=== PATIENT | female | born 1970 | race Native Hawaiian/Other Pacific Islander ===

== ENCOUNTER 2016-09-03 07:56 | Emergency (ER) | payer OTHER ==
[2016-09-03 07:57] VITALS: BMI 24.6
[2016-09-03 08:02] VITALS: RESP 16; O2SAT 99
--- NOTE | 2016-09-03 08:11 | ED PDOC ---
Arrival/HPI - General Chief Complaint: ENT Problem Time Seen by Provider: 09/03/16 08:10 Historian: Patient - History of Present Illness Narrative History of Present Illness (Text): 09/03/16 08:10 A 45 year old female, whose past medical history includes hypertension, presents to the emergency department complaining of upper lip swelling since this morning. Patient reports symptom began after wearing a duckbill mask at work. Patient denies use of any new medications, creams or foods. Patient denies any fever, chills, nausea, vomiting, diarrhea, abdominal pain, chest pain , shortness of breath or any other complaints. PMD: None Time/Duration: Other (This morning) Symptom Course: Unchanged Quality: Other Context: Work Past Medical History - Provider Review Nursing Documentation Reviewed: Yes - Infectious Disease Hx of Infectious Diseases: None - Reproductive Menopause: No - Cardiac Hx Hypertension: Yes - Endocrine/Metabolic Hx Hyperthyroidism: Yes - Psychiatric Hx Depression: No Hx Emotional Abuse: No Hx Physical Abuse: No Hx Substance Use: No - Past Surgical History Past Surgical History: No Previous - Anesthesia Hx Anesthesia: No Hx Anesthesia Reactions: No Hx Malignant Hyperthermia: No - Suicidal Assessment Feels Threatened In Home Enviroment: No Family/Social History - Physician Review Nursing Documentation Reviewed: Yes Family/Social History: No Known Family HX Smoking Status: Unknown If Ever Smoked Hx Alcohol Use: No Hx Substance Use: No Hx Substance Use Treatment: No Allergies/Home Meds Allergies/Adverse Reactions: Allergies cherries Allergy (Uncoded 09/03/16 08:02) RASH Home Medications: Home Meds Medication Instructions Recorded Confirmed Irbesartan [Avapro] 0 mg PO DAILY 09/03/16 09/03/16 Review of Systems - Physician Review All systems were reviewed & negative as marked: Yes - Review of Systems Constitutional: absent: Fevers, Night Sweats Respiratory: absent: SOB Cardiovascular: absent: Chest Pain Gastrointestinal: absent: Abdominal Pain, Diarrhea, Nausea, Vomiting Skin: Other (Upper lip swelling) Physical Exam - Physical Exam Narrative Physical Exam (Text): Constitutional: No acute distress. Head: Normocephalic. Atraumatic. Upper lip swelling. Eyes: PERRL. ENT: Moist mucous membranes. No uvular swelling. No tongue swelling. Neck: Supple. Cardiovascular: Regular rate. Chest: No tenderness. Respiratory: Clear to auscultation bilaterally. Airway patent. GI: Soft. Nontender. Nondistended. Back: No CVA tenderness. Musculoskeletal: No tenderness or swelling of extremities. Skin: No rash. Neurologic: Alert, no focal deficit. Vital Signs Reviewed: Yes Vital Signs Temp Pulse Resp BP Pulse Ox 09/03/16 07:57 98.8 F 92 H 16 125/80 99 Temperature: Afebrile Blood Pressure: Normal Pulse: Tachycardic Respiratory Rate: Normal Appearance: Positive for: Well-Appearing, Non-Toxic, Comfortable Pain Distress: None Mental Status: Positive for: Alert and Oriented X 3 Medical Decision Making ED Course and Treatment: 09/03/16 08:10 Impression: A 45 year old female with upper lip swelling. Plan: -- Decadron, Benadryl, Pepcid -- Reassess and disposition Progress Notes: 09/03/16 08:45 On re-evaluation, patient developed left upper eyelid swelling. Patient continues to deny swelling in throat. Will place patient on IV and administer IV medication. 09/03/16 10:29 Eyelid swelling improved. Upper lip remains swollen, not increasing in size, patient not in any distress and no concern for airway. Will discharge, continue medications, f/u PMD, instructed to return to the ER for any worsening swelling , tongue swelling, throat closing, dyspnea. - Medication Orders Current Medication Orders: Discontinued Medications Dexamethasone (Decadron) 10 mg PO STAT STA Stop: 09/03/16 08:15 Last Admin: 09/03/16 08:46 Dose: Dexamethasone (Decadron Inj) Confirm Administered Dose 12 mg .ROUTE .STK-MED ONE Stop: 09/03/16 08:35 Last Admin: 09/03/16 08:43 Dose: 10 mg Diphenhydramine HCl (Benadryl) 25 mg PO STAT STA Stop: 09/03/16 08:15 Diphenhydramine HCl (Benadryl) 25 mg PO STAT STA Stop: 09/03/16 08:28 Last Admin: 09/03/16 08:46 Dose: Diphenhydramine HCl (Benadryl) Confirm Administered Dose 50 mg .ROUTE .STK-MED ONE Stop: 09/03/16 08:35 Last Admin: 09/03/16 08:44 Dose: 25 mg Famotidine (Pepcid) 20 mg PO STAT STA Stop: 09/03/16 08:15 Last Admin: 09/03/16 08:46 Dose: Famotidine (Pepcid) Confirm Administered Dose 20 mg .ROUTE .STK-MED ONE Stop: 09/03/16 08:35 Last Admin: 09/03/16 08:44 Dose: 20 mg - Scribe Statement The provider has reviewed the documentation as recorded by the Ayushibfrederic Hyde Provider Scribe Attestation: All medical record entries made by the Scribe were at my direction and personally dictated by me. I have reviewed the chart and agree that the record accurately reflects my personal performance of the history, physical exam, medical decision making, and the department course for this patient. I have also personally directed, reviewed, and agree with the discharge instructions and disposition. Disposition/Present on Arrival - Present on Arrival Any Indicators Present on Arrival: No History of DVT/PE: No History of Uncontrolled Diabetes: No Urinary Catheter: No History of Decub. Ulcer: No History Surgical Site Infection Following: None - Disposition Have Diagnosis and Disposition been Completed?: Yes Diagnosis: Lip swelling Disposition: HOME/ ROUTINE Disposition Time: 10:30 Patient Plan: Discharge Condition: STABLE Discharge Instructions (ExitCare): General Allergic Reaction (ED) Prescriptions: Dexamethasone [Decadron] 5 tab PO ONCE #5 tab DiphenhydrAMINE [Benadryl] 2 cap PO Q8 #25 cap Famotidine [Pepcid] 1 tab PO BID #14 tab Referrals: PCP,NO [Primary Care Provider] - Follow up with primary Forms: WORK NOTE
[2016-09-03] MEDS ORDERED: DiphenhydrAMINE 50 mg/ml Inj ONE (08:34)
[2016-09-03] MEDS ORDERED: Dexamethasone 4 mg/1 ml ONE (08:34)
[2016-09-03 10:44] VITALS: BP 131/78; PULSE 83; TEMP 97.9
== END 2016-09-03 10:48 | disposition home or self-care (01) ==
LOC: ED 07:56
DX: R22.0 Localized swelling, mass and lump, head (principal)
CPT/HCPCS: 99283; J1100; J1200

== ENCOUNTER 2016-11-16 16:28 | Emergency (ER) | payer OTHER ==
[2016-11-16 16:44] VITALS: BMI 23.6
[2016-11-16] MEDS ORDERED: Alum-Mag Hydrox-Simethicone Susp (30 mL) PO STA (17:04)
--- NOTE | 2016-11-16 17:04 | ED PDOC ---
Arrival/HPI - General Historian: Patient - History of Present Illness Time/Duration: Other (yesterday) Symptom Onset: Sudden Symptom Course: Intermittent Quality: Pressure <Sawyer Aguilar - Last Filed: 11/16/16 19:05> <LucilaChad L - Last Filed: 11/17/16 11:55> - General Chief Complaint: Chest Pain Time Seen by Provider: 11/16/16 16:31 - History of Present Illness Narrative History of Present Illness (Text): 11/16/16 17:00 This is a 45 year old female with PMHx HTN, hypercholesterolemia, gastritis left ovarian cyst who presents complaining of chest and epigastric pain. Patient states that pain began yesterday and feels like a pressure sensation. It is intermittent and begins in the epigastric region and radiates to the chest. The patient states that that there was diaphoresis, nausea, palpitations , lightheadedness, and dyspnea at one point yesterday. This has since resolved. Patient states that neither the epigastric nor the chest pain are related to meals. Patient denies family history of IL/CAD but admits to family history of diabetes. PMD:Dr. Tapia (Sawyer Aguilar) Past Medical History - Provider Review Nursing Documentation Reviewed: Yes - Infectious Disease Hx of Infectious Diseases: None - Reproductive Menopause: No - Cardiac Hx Cardiac Disorders: Yes Hx Hypertension: Yes - Pulmonary Hx Respiratory Disorders: No - Neurological Hx Neurological Disorder: No - HEENT Hx HEENT Disorder: No - Renal Hx Renal Disorder: No - Endocrine/Metabolic Hx Endocrine Disorders: Yes Hx Hyperthyroidism: Yes - Hematological/Oncological Hx Blood Disorders: No - Integumentary Hx Dermatological Disorder: No - Musculoskeletal/Rheumatological Hx Musculoskeletal Disorders: No - Gastrointestinal Hx Gastrointestinal Disorders: No - Genitourinary/Gynecological Hx Genitourinary Disorders: No - Psychiatric Hx Psychophysiologic Disorder: No Hx Substance Use: No - Past Surgical History Past Surgical History: No Previous - Anesthesia Hx Anesthesia: No Hx Anesthesia Reactions: No Hx Malignant Hyperthermia: No - Suicidal Assessment Feels Threatened In Home Enviroment: No <Sawyer Aguilar - Last Filed: 11/16/16 19:05> Family/Social History - Physician Review Nursing Documentation Reviewed: Yes Family/Social History: Diabetes Smoking Status: Unknown If Ever Smoked Hx Alcohol Use: No Hx Substance Use: No Hx Substance Use Treatment: No <Sawyer Aguilar - Last Filed: 11/16/16 19:05> Allergies/Home Meds <Sawyer Aguilar - Last Filed: 11/16/16 19:05> <Chad Gaytan - Last Filed: 11/17/16 11:55> Allergies/Adverse Reactions: Allergies cherries Allergy (Uncoded 09/03/16 08:02) RASH Home Medications: Home Meds Medication Instructions Recorded Confirmed Irbesartan [Avapro] 0 mg PO DAILY 09/03/16 11/16/16 Simvastatin [Zocor] 20 mg PO DAILY 11/16/16 11/16/16 Review of Systems - Review of Systems Constitutional: Normal Eyes: Normal ENT: Normal Respiratory: SOB (resolved) Cardiovascular: Chest Pain, Palpitations (resolved) Gastrointestinal: Abdominal Pain (epigastric), Nausea (resolved) Genitourinary Female: Normal Musculoskeletal: Normal Skin: Normal Neurological: Other (lightheadedness resolved) Endocrine: Normal Hemo/Lymphatic: Normal Psychiatric: Normal <Sawyer Aguilar - Last Filed: 11/16/16 19:05> Physical Exam Vital Signs Reviewed: Yes Temperature: Afebrile Blood Pressure: Normal Pulse: Regular Respiratory Rate: Normal Appearance: Positive for: Well-Appearing Pain Distress: Mild Mental Status: Positive for: Alert and Oriented X 3 - Systems Exam Head: Present: Atraumatic, Normocephalic Pupils: Present: PERRL Extroacular Muscles: Present: EOMI Conjunctiva: Present: Normal Mouth: Present: Moist Mucous Membranes Neck: Present: Normal Range of Motion Respiratory/Chest: Present: Clear to Auscultation, Good Air Exchange. No: Accessory Muscle Use Cardiovascular: Present: Regular Rate and Rhythm, Normal S1, S2, Other (chest pain not reproducible) Abdomen: Present: Tenderness (epigastric tenderness), Normal Bowel Sounds. No: Distention Upper Extremity: Present: Normal Inspection, NORMAL PULSES. No: Edema Lower Extremity: Present: Normal Inspection, NORMAL PULSES. No: Edema, CALF TENDERNESS Neurological: Present: GCS=15, CN II-XII Intact Skin: Present: Warm, Dry, Normal Color. No: Rashes Psychiatric: Present: Alert, Oriented x 3 <Sawyer Aguilar - Last Filed: 11/16/16 19:05> Vital Signs Temp Pulse Resp BP Pulse Ox 11/16/16 23:00 76 16 127/85 99 11/16/16 19:04 98.2 F 83 16 129/73 98 11/16/16 17:14 98.1 F 97 H 17 133/71 99 Medical Decision Making - Lab Interpretations I have reviewed the lab results: Yes - EKG Interpretation Interpreted by ED Physician: Yes Type: 12 lead EKG - Transfer of Care Patient signed out to Dr:: Dr. Sesay Pending Radiology Studies:: Abdominal Ultrasound <Sawyer Aguilar - Last Filed: 11/16/16 19:05> <Chad Gaytan - Last Filed: 11/17/16 11:55> ED Course and Treatment: 11/16/16 17:37 Impression: This is a 45 year old female with PMHx HTN, gastritis who presents complaining of chest and epigastric pain. Since the epigastric pain radiates to the chest, it is likely that the pain is related to the GI system. The cardiac enzymes were unremarkable and the EKG was also not concerning showing NSR at rate [address] changes. Plan: EKG, Cardiac ISO CBC, CMP, Lipase, Mag Lipid panel Maalox and IV Pepcid were given. Patient was still in pain upon re-assessment. Morphine 4 mg IV given. Troponin negative. Portable CXR: IMPRESSION:No focal consolidation, significant pleural effusion, or definite pneumothorax identified. Elevated lipase at 389. Mildly elevated LFTs. Abdominal Ultrasound ordered. (Sawyer Aguilar) 11/16/16 19:00 45 yo female presents with epigastric and left upper abdominal pain. I agree with resident note. I agree with history and physical, assessment and plan. Patient's LFTs are mildly elevated. Lipase at 389. Case signed out to Dr. Sesay to f/u ultrasound, reevaluate and disposition. (Chad Gaytan) - Lab Interpretations Lab Results: 11/16/16 16:39 11/16/16 16:39 Lab Results 11/16/16 17:30: Urine Color Yellow, Urine Appearance Clear, Urine pH 6.0, Ur Specific Rowley 1.025, Urine Protein Negative, Urine Glucose (UA) Negative, Urine Ketones Negative, Urine Blood Negative, Urine Nitrate Negative, Urine Bilirubin Negative, Urine Urobilinogen 0.2, Ur Leukocyte Esterase Small H, Urine RBC 2 - 5, Urine WBC 5 - 10, Ur Epithelial Cells 3 - 4, Urine Bacteria Many 11/16/16 16:39: Sodium 140, Potassium 3.9, Chloride 103, Carbon Dioxide 26, Anion Gap 15, BUN 21, Creatinine 0.6, Est GFR ( Amer) > 60, Est GFR (Non- Af Amer) > 60, Random Glucose 98, Calcium 9.1, Magnesium 2.0, Total Bilirubin 0.6, AST 45 H, ALT 78 H, Alkaline Phosphatase 86, Lactate Dehydrogenase 458, Total Creatine Kinase 37, Troponin I < 0.01, Total Protein 7.8, Albumin 4.5, Globulin 3.3, Albumin/Globulin Ratio 1.4, Triglycerides 166 H, Cholesterol 200, LDL Cholesterol Direct 115, HDL Cholesterol 60, Lipase 389 H 11/16/16 16:39: WBC 8.8, RBC 4.27, Hgb 13.9, Hct 39.5, MCV 92.5, MCH 32.6, MCHC 35.2, RDW 12.7, Plt Count 394, MPV 8.3, Gran % 52.8, Lymph % (Auto) 39.0 H, Gilliam % (Auto) 6.6 H, Eos % (Auto) 1.0 L, Baso % (Auto) 0.6, Gran # 4.66, Lymph # 3.4, Gilliam # 0.6, Eos # 0.1, Baso # 0.05 - RAD Interpretation Radiology Orders: 11/16/16 16:59 CHEST PORTABLE [RAD] Stat 11/16/16 17:40 ABDOMEN COMPLETE [US] Stat 11/16/16 19:20 ABD PELVIS PO & IV CONTRAST [CT] Stat - Medication Orders Current Medication Orders: Discontinued Medications Al Hydrox/Mg Hydrox/Simethicone (Maalox Plus 30 Ml) 30 ml PO STAT STA Stop: 11/16/16 17:05 Last Admin: 11/16/16 17:29 Dose: 30 ml Dexamethasone (Decadron Inj) 10 mg IVP STAT STA Stop: 11/16/16 22:05 Last Admin: 11/16/16 22:18 Dose: 10 mg IVP Administration Document 11/16/16 22:18 SC (Rec: 11/16/16 22:18 [facility] [id number]) Charges for Administration # of IVP Administrations 1 Diphenhydramine HCl (Benadryl) 25 mg IVP STAT STA Stop: 11/16/16 22:05 Last Admin: 11/16/16 22:10 Dose: 25 mg IVP Administration Document 11/16/16 22:10 GMD (Rec: 11/16/16 22:10 GMD [id number]) Charges for Administration # of IVP Administrations 1 Diphenhydramine HCl (Benadryl) Confirm Administered Dose 50 mg .ROUTE .STK-MED ONE Stop: 11/16/16 22:08 Last Admin: 11/16/16 22:12 Dose: Famotidine (Pepcid) 20 mg IVP STAT STA Stop: 11/16/16 17:05 Last Admin: 11/16/16 17:29 Dose: 20 mg IVP Administration Document 11/16/16 17:29 IT (Rec: 11/16/16 17:30 IT [id number]) Charges for Administration # of IVP Administrations 1 Sodium Chloride (Sodium Chloride 0.9%) 1,000 mls @ 999 mls/hr IV .Q1H1M STA Stop: 11/16/16 20:19 Last Admin: 11/16/16 20:03 Dose: 999 mls/hr eMAR Start Stop Document 11/16/16 20:03 SC (Rec: 11/16/16 20:03 [id number] Intravenous Solution Start Date 11/16/16 Start Time 20:03 End Date 11/16/16 End time 21:03 Total Infusion Time 60 Iohexol (Omnipaque 240 (50 Ml)) Confirm Administered Dose 50 ml .ROUTE .STK-MED ONE Stop: 11/16/16 20:21 Iohexol (Omnipaque 350 100 Ml) Confirm Administered Dose 350 mg .ROUTE .STK-MED ONE Stop: 11/16/16 21:26 Ketorolac Tromethamine (Toradol) 30 mg IVP STAT STA Stop: 11/16/16 19:45 Last Admin: 11/16/16 20:03 Dose: 30 mg MAR Pain Assessment Document 11/16/16 20:03 SC (Rec: 11/16/16 20:03 [id number] Pain Reassessment Is this a pain reassessment? Yes Sleep Is patient sleeping during reassessment? No Presence of Pain Presence of Pain Yes Pain Scale Used Pain Scale Used Numeric Location Left, Right or Bilateral Left Upper or Lower Lower Pain Location Body Site Chest Description Description Constant Intensity of Pain at present 7 IVP Administration Document 11/16/16 20:03 [place] (Rec: 11/16/16 20:03 [id number] Charges for Administration # of IVP Administrations 1 Re-Assess: MAR Pain Assessment Document 11/16/16 21:03 MT (Rec: 11/17/16 00:02 [id number] Pain Reassessment Is this a pain reassessment? Yes Sleep Is patient sleeping during reassessment? Yes Morphine Sulfate (Morphine) 4 mg IVP STAT STA Stop: 11/16/16 18:20 Last Admin: 11/16/16 19:06 Dose: Not Given Non-Admin Reason: Patient Refused Pantoprazole Sodium (Protonix Inj) 40 mg IVP ONCE STA Stop: 11/16/16 19:20 Last Admin: 11/16/16 20:02 Dose: 40 mg IVP Administration Document 11/16/16 20:02 MT (Rec: 11/16/16 20:02 [id number] Charges for Administration # of IVP Administrations 1 Disposition/Present on Arrival - Present on Arrival Any Indicators Present on Arrival: No History of DVT/PE: No History of Uncontrolled Diabetes: No Urinary Catheter: No History of Decub. Ulcer: No History Surgical Site Infection Following: None - Disposition Have Diagnosis and Disposition been Completed?: Yes Disposition Time: 19:00 <Sawyer Aguilar - Last Filed: 11/16/16 19:05> - Disposition Patient Plan: Discharge <Chad Gaytan - Last Filed: 11/17/16 11:55> - Disposition Diagnosis: Abdominal pain, Hiatal hernia, Urinary tract infection, Fatty infiltration of liver, Gallstones Disposition: HOME/ ROUTINE Condition: GOOD Discharge Instructions (ExitCare): Hiatal Hernia (ED), Gallstones (ED), Non- Alcoholic Fatty Liver Disease (ED) Additional Instructions: Avoid fatty and greasy food. Drink plenty of fluids. Take the nexium as prescribed. Make sure you follow up with gastroenterology. Return to the emergency department if any new concerning symptoms. Prescriptions: Esomeprazole Magnesium [Nexium] 1 cap PO DAILY #30 cap Nitrofurantoin Macrocrystals [Macrobid] 100 mg PO BID #14 cap Referrals: Sinan Tapia MD [Medical Doctor] - Follow up with primary Forms: [employer] ([place])
[2016-11-16 17:17] LABS: BASO # 0.05 K/mm3 (0.0-2.0); BASO % 0.6 % (0.0-3.0); EOS # 0.1 (0.0-0.7); GRAN # 4.66 (1.4-6.5); GRAN % 52.8 % (50.0-68.0); HEMATOCRIT 39.5 % (36.0-48.0); LYMPH # 3.4 (1.2-3.4); MEAN CELL VOLUME 92.5 fl (80.0-105.0); MEAN CORPUSCULAR HEMOGLOBIN 32.6 pg (25.0-35.0); MEAN CORPUSCULAR HGB CONC 35.2 g/dl (31.0-37.0); MEAN PLATELET VOLUME 8.3 fl (7.0-11.0); MONO # 0.6 (0.1-0.6); MONO % 6.6 % (1.0-6.0); RED CELL DISTRIBUTION WIDTH 12.7 % (11.5-14.5); WHITE BLOOD COUNT 8.8 10^3/ul (4.5-11.0)
[2016-11-16 17:29] LABS: ALB/GLOB RATIO 1.4 (1.1-1.8); ALKALINE PHOSPHATASE 86 U/L (38-126); ALT/SGPT 78 U/L (7-56); AST/SGOT 45 U/L (14-36); BILIRUBIN,TOTAL 0.6 mg/dL (0.2-1.3); BLOOD UREA NITROGEN 21 mg/dL (7-21); CALCIUM 9.1 mg/dL (8.4-10.5); CARBON DIOXIDE 26 mmol/L (21-33); CHLORIDE 103 mmol/L (98-107); GFR AFRICAN-AMERICAN > 60; GLUCOSE,RANDOM 98 mg/dL (70-110); LIPASE 389 U/L (23-300); POTASSIUM 3.9 mmol/L (3.6-5.0); SODIUM 140 mmol/L (132-148); TOTAL PROTEIN 7.8 g/dL (5.8-8.3)
[2016-11-16 17:41] LABS: TROPONIN I < 0.01 ng/mL
[2016-11-16 17:54] LABS: URINE BILIRUBIN NEGATIVE (NEGATIVE); URINE BLOOD NEGATIVE (NEGATIVE); URINE GLUCOSE (UA) NEGATIVE (NEGATIVE); URINE KETONE NEGATIVE (NEGATIVE); URINE LEUKOCYTE ESTERASE SMALL Leu/uL (NEGATIVE); URINE PROTEIN NEGATIVE mg/dL (<30 mg/dL); URINE UROBILINOGEN 0.2 E.U./dL (<1 E.U./dL)
[2016-11-16 17:58] LABS: URINE APPEARANCE CLEAR (CLEAR); URINE COLOR YELLOW (YELLOW)
[2016-11-16 18:18] LABS: CHOLESTEROL 200 mg/dL (130-200)
[2016-11-16] MEDS ORDERED: Morphine 4 mg/ml ISec IVP STA (18:19)
--- NOTE | 2016-11-16 18:36 | RAD ---
HISTORY: chest pain COMPARISON: Chest x-ray performed 07/17/13 TECHNIQUE: Chest, one view. FINDINGS: LUNGS: No focal consolidation. Please note that chest x-ray has limited sensitivity for the detection of pulmonary masses. PLEURA: No significant pleural effusion identified. No definite pneumothorax . CARDIOVASCULAR: Heart size appears within normal limits. OSSEOUS STRUCTURES: No acute osseous abnormality identified. VISUALIZED UPPER ABDOMEN: Unremarkable. OTHER FINDINGS: None. IMPRESSION: No focal consolidation, significant pleural effusion, or definite pneumothorax identified.
[2016-11-16 18:47] LABS: URINE BACTERIA MANY (NEG)
--- NOTE | 2016-11-16 18:59 | US ---
HISTORY: r/o cholecystitis vs biliary colic. elevated lipas COMPARISON: None. TECHNIQUE: Grayscale imaging was performed. FINDINGS: LIVER: Measures 12.5 cm. There is diffuse increased echogenicity of the liver parenchyma. No mass. No intrahepatic bile duct dilatation. GALLBLADDER: The shadowing calcification within the gallbladder. COMMON BILE DUCT: Measures 1.6 mm. No stones. No dilatation. PANCREAS: Unremarkable as visualized. No mass. No ductal dilatation. RIGHT KIDNEY: Measures 10.5cm. Normal echogenicity. No calculus, mass, or hydronephrosis. LEFT KIDNEY: Measures 10.9cm. Normal echogenicity. No calculus, mass, or hydronephrosis. SPLEEN: Normal in size and contour. No mass. AORTA: No aneurysmal dilatation. IVC: Unremarkable. OTHER FINDINGS: None. IMPRESSION: Cholelithiasis. No biliary dilatation. Mild diffuse increased echogenicity in the liver may reflect hepatic steatosis however parenchymal infectious/ inflammatory etiologies cannot be entirely excluded. Clinical and laboratory correlation is advised.
[2016-11-16 19:05] VITALS: RESP 16; TEMP 98.2
[2016-11-16] MEDS ORDERED: Sodium Chloride 0.9% 1,000 ML IV STA (19:19)
--- NOTE | 2016-11-16 19:27 | ED PDOC ---
Physical Exam - Physical Exam Narrative Physical Exam (Text): 11/16/16 19:21 Patient endorsed to me by Dr. Gaytan, pending sono results. Sono is showing cholelithiasis but no biliary ductal dilatation. Of note, LFTs are midlly elevated and lipase is 389. Patient is still in pain. She did not take the morphine previously ordered. Vital Signs Temp Pulse Resp BP Pulse Ox 11/16/16 19:04 98.2 F 83 16 129/73 98 11/16/16 17:14 98.1 F 97 H 17 133/71 99 Temperature: Afebrile Blood Pressure: Normal Pulse: Regular Respiratory Rate: Normal Appearance: Positive for: Well-Appearing, Non-Toxic, Comfortable Pain Distress: None Mental Status: Positive for: Alert and Oriented X 3 - Systems Exam Head: Present: Atraumatic, Normocephalic Mouth: Present: Moist Mucous Membranes Neck: Present: Normal Range of Motion Respiratory/Chest: No: Respiratory Distress, Accessory Muscle Use Abdomen: Present: Tenderness (ttp in the epigastric and LUQ pain), Normal Bowel Sounds. No: Distention, Peritoneal Signs Back: Present: Normal Inspection Medical Decision Making ED Course and Treatment: 11/16/16 19:30 Sono results: IMPRESSION: Cholelithiasis. No biliary dilatation. Mild diffuse increased echogenicity in the liver may reflect hepatic steatosis however parenchymal infectious/ inflammatory etiologies cannot be entirely excluded. Clinical and laboratory correlation is advised. Will order CT a/p and administer toradol at this time as well as IVF. 11/16/16 23:35 CT Abdomen and Pelvis With Intravenous Contrast: Creator : CANDELARIA BLISS FINDINGS: Lower thorax: The bilateral lung bases are clear. An air-filled hiatal hernia is present. Mural thickening within the stomach, possibly related to under distention. ABDOMEN: Liver: No acute findings. Diffuse fatty infiltration is present. Gallbladder and bile ducts: The gallbladder is only minimally distended, without calcified stones. No significant intra- or extrahepatic biliary ductal dilation. Pancreas: Enhances homogeneously. No ductal dilation. No discrete mass. Spleen: No acute findings. Adrenals: No acute findings. Kidneys and ureters: No acute findings. No hydronephrosis or renal calculi. No discrete solid mass. PELVIS: Bladder: No acute findings. Reproductive: No acute findings. Appendix: The air filled appendix is of normal caliber (series 2, image 122) . ABDOMEN and PELVIS: Stomach and bowel: Oral contrast extends to the level of the colon, without obstruction. No mucosal thickening. Peritoneum: No significant fluid collection. No free air. Lymph nodes: No pathologically enlarged lymph nodes. Vasculature: Unremarkable. Bones: No acute fracture. IMPRESSION: Air-filled hiatal hernia. Mural thickening within the stomach, possibly related to underdistention. Fatty infiltration of the liver. 11/16/16 23:40 CT result as noted with no acute findings; hiatal hernia present - will d/c on PPI and abx for UTI, and she will f/u GI, to be arranged by pmd. - Lab Interpretations Lab Results: 11/16/16 16:39 11/16/16 16:39 Lab Results 11/16/16 17:30: Urine Color Yellow, Urine Appearance Clear, Urine pH 6.0, Ur Specific [place] 1.025, Urine Protein Negative, Urine Glucose (UA) Negative, Urine Ketones Negative, Urine Blood Negative, Urine Nitrate Negative, Urine Bilirubin Negative, Urine Urobilinogen 0.2, Ur Leukocyte Esterase Small H, Urine RBC 2 - 5, Urine WBC 5 - 10, Ur Epithelial Cells 3 - 4, Urine Bacteria Many 11/16/16 16:39: Sodium 140, Potassium 3.9, Chloride 103, Carbon Dioxide 26, Anion Gap 15, BUN 21, Creatinine 0.6, Est GFR ( Amer) > 60, Est GFR (Non- Af Amer) > 60, Random Glucose 98, Calcium 9.1, Magnesium 2.0, Total Bilirubin 0.6, AST 45 H, ALT 78 H, Alkaline Phosphatase 86, Lactate Dehydrogenase 458, Total Creatine Kinase 37, Troponin I < 0.01, Total Protein 7.8, Albumin 4.5, Globulin 3.3, Albumin/Globulin Ratio 1.4, Triglycerides 166 H, Cholesterol 200, LDL Cholesterol Direct 115, HDL Cholesterol 60, Lipase 389 H 11/16/16 16:39: WBC 8.8, RBC 4.27, Hgb 13.9, Hct 39.5, MCV 92.5, MCH 32.6, MCHC 35.2, RDW 12.7, Plt Count 394, MPV 8.3, Gran % 52.8, Lymph % (Auto) 39.0 H, Moody % (Auto) 6.6 H, Eos % (Auto) 1.0 L, Baso % (Auto) 0.6, Gran # 4.66, Lymph # 3.4, Moody # 0.6, Eos # 0.1, Baso # 0.05 - RAD Interpretation Radiology Orders: 11/16/16 16:59 CHEST PORTABLE [RAD] Stat 11/16/16 17:40 ABDOMEN COMPLETE [US] Stat 11/16/16 19:20 ABD PELVIS PO & IV CONTRAST [CT] Stat - Medication Orders Current Medication Orders: Discontinued Medications Al Hydrox/Mg Hydrox/Simethicone (Maalox Plus 30 Ml) 30 ml PO STAT STA Stop: 11/16/16 17:05 Last Admin: 11/16/16 17:29 Dose: 30 ml Dexamethasone (Decadron Inj) 10 mg IVP STAT STA Stop: 11/16/16 22:05 Last Admin: 11/16/16 22:18 Dose: 10 mg IVP Administration Document 11/16/16 22:18 SC (Rec: 11/16/16 22:18 [place] [facility] [id number] Charges for Administration # of IVP Administrations 1 Diphenhydramine HCl (Benadryl) 25 mg IVP STAT STA Stop: 11/16/16 22:05 Last Admin: 11/16/16 22:10 Dose: 25 mg IVP Administration Document 11/16/16 22:10 GMD (Rec: 11/16/16 22:10 GMD [id number]) Charges for Administration # of IVP Administrations 1 Diphenhydramine HCl (Benadryl) Confirm Administered Dose 50 mg .ROUTE .STK-MED ONE Stop: 11/16/16 22:08 Last Admin: 11/16/16 22:12 Dose: Famotidine (Pepcid) 20 mg IVP STAT STA Stop: 11/16/16 17:05 Last Admin: 11/16/16 17:29 Dose: 20 mg IVP Administration Document 11/16/16 17:29 IT (Rec: 11/16/16 17:30 IT [id number]) Charges for Administration # of IVP Administrations 1 Sodium Chloride (Sodium Chloride 0.9%) 1,000 mls @ 999 mls/hr IV .Q1H1M STA Stop: 11/16/16 20:19 Last Admin: 11/16/16 20:03 Dose: 999 mls/hr eMAR Start Stop Document 11/16/16 20:03 SC (Rec: 11/16/16 20:03 [id number] Intravenous Solution Start Date 11/16/16 Start Time 20:03 End Date 11/16/16 End time 21:03 Total Infusion Time 60 Iohexol (Omnipaque 240 (50 Ml)) Confirm Administered Dose 50 ml .ROUTE .STK-MED ONE Stop: 11/16/16 20:21 Iohexol (Omnipaque 350 100 Ml) Confirm Administered Dose 350 mg .ROUTE .STK-MED ONE Stop: 11/16/16 21:26 Ketorolac Tromethamine (Toradol) 30 mg IVP STAT STA Stop: 11/16/16 19:45 Last Admin: 11/16/16 20:03 Dose: 30 mg MAR Pain Assessment Document 11/16/16 20:03 SC (Rec: 11/16/16 20:03 [id number][facility] Pain Reassessment Is this a pain reassessment? Yes Sleep Is patient sleeping during reassessment? No Presence of Pain Presence of Pain Yes Pain Scale Used Pain Scale Used Numeric Location Left, Right or Bilateral Left Upper or Lower Lower Pain Location Body Site Chest Description Description Constant Intensity of Pain at present 7 IVP Administration Document 11/16/16 20:03 SC (Rec: 11/16/16 20:03 [id number] Charges for Administration # of IVP Administrations 1 Morphine Sulfate (Morphine) 4 mg IVP STAT STA Stop: 11/16/16 18:20 Last Admin: 11/16/16 19:06 Dose: Not Given Non-Admin Reason: Patient Refused Pantoprazole Sodium (Protonix Inj) 40 mg IVP ONCE STA Stop: 11/16/16 19:20 Last Admin: 11/16/16 20:02 Dose: 40 mg IVP Administration Document 11/16/16 20:02 SC (Rec: 11/16/16 20:02 [id number][facility] Charges for Administration # of IVP Administrations 1 - PA / [employer] WORKER / Resident Statement / has reviewed & agrees with the documentation as recorded. / has examined the patient and agrees with the treatment plan. Disposition/Present on Arrival - Present on Arrival Any Indicators Present on Arrival: No History of DVT/PE: No History of Uncontrolled Diabetes: No Urinary Catheter: No History of Decub. Ulcer: No History Surgical Site Infection Following: None - Disposition Have Diagnosis and Disposition been Completed?: Yes Diagnosis: Abdominal pain, Hiatal hernia, Urinary tract infection, Fatty infiltration of liver, Gallstones Disposition: HOME/ ROUTINE Disposition Time: 11:40 Patient Plan: Discharge Patient Problems: Current Active Problems Problem Status Onset Abdominal pain Acute Fatty infiltration of liver Acute Gallstones Acute Hiatal hernia Acute Urinary tract infection Acute Condition: GOOD Discharge Instructions (ExitCare): Non-Alcoholic Fatty Liver Disease (ED), Hiatal Hernia (ED), Gallstones (ED) Additional Instructions: Avoid fatty and greasy food. Drink plenty of fluids. Take the nexium as prescribed. Make sure you follow up with gastroenterology. Return to the emergency department if any new concerning symptoms. Prescriptions: Esomeprazole Magnesium [Nexium] 1 cap PO DAILY #30 cap Nitrofurantoin Macrocrystals [Macrobid] 100 mg PO BID #14 cap Referrals: Sinan Tapia MD [Medical Doctor] - Follow up with primary Forms: [employer] (Albanian)
[2016-11-16] MEDS ORDERED: Iohexol 240 (50 ml) ONE (20:20)
[2016-11-16] MEDS ORDERED: Iohexol 350 MG/100 ML VIAL ONE (21:25)
[2016-11-16] MEDS ORDERED: DiphenhydrAMINE 50 mg/ml Inj IVP STA (22:04)
[2016-11-16] MEDS ORDERED: DiphenhydrAMINE 50 mg/ml Inj ONE (22:07)
--- NOTE | 2016-11-16 23:31 | CT ---
EXAM: CT Abdomen and Pelvis With Intravenous Contrast CLINICAL HISTORY: 45 years old, female; Pain; Abdominal pain; Localized; Left upper quadrant (luq); Additional info: Epigastric pain, luq pain, abnormal lipase and lfts TECHNIQUE: Axial computed tomography images of the abdomen and pelvis with intravenous contrast. All CT scans at this facility use one or more dose reduction techniques, viz.: automated exposure control; ma/kV adjustment per patient size (including targeted exams where dose is matched to indication; i.e. head); or iterative reconstruction technique. Coronal and sagittal reformatted images were created and reviewed. CONTRAST: 93 mL of OMNI 350 administered intravenously. COMPARISON: US - ABDOMEN COMPLETE 11/16/2016 6:33:04 PM FINDINGS: Lower thorax: The bilateral lung bases are clear. An air-filled hiatal hernia is present. Mural thickening within the stomach, possibly related to under distention. ABDOMEN: Liver: No acute findings. Diffuse fatty infiltration is present. Gallbladder and bile ducts: The gallbladder is only minimally distended, without calcified stones. No significant intra- or extrahepatic biliary ductal dilation. Pancreas: Enhances homogeneously. No ductal dilation. No discrete mass. Spleen: No acute findings. Adrenals: No acute findings. Kidneys and ureters: No acute findings. No hydronephrosis or renal calculi. No discrete solid mass. PELVIS: Bladder: No acute findings. Reproductive: No acute findings. Appendix: The air filled appendix is of normal caliber (series 2, image 122) . ABDOMEN and PELVIS: Stomach and bowel: Oral contrast extends to the level of the colon, without obstruction. No mucosal thickening. Peritoneum: No significant fluid collection. No free air. Lymph nodes: No pathologically enlarged lymph nodes. Vasculature: Unremarkable. Bones: No acute fracture. IMPRESSION: Air-filled hiatal hernia. Mural thickening within the stomach, possibly related to underdistention. Fatty infiltration of the liver.
[2016-11-17 00:04] VITALS: BP 127/85; PULSE 76; O2SAT 99
--- NOTE | 2016-11-18 01:43 | CARD ---
APPROVED REPORT EKG Measurement Heart [id number] <Conclusion> Normal sinus rhythm Normal ECG
== END 2016-11-17 | disposition home or self-care (01) ==
LOC: ED 16:28
DX: K44.9 Diaphragmatic hernia without obstruction or gangrene (principal); K80.80 Other cholelithiasis without obstruction; K76.0 Fatty (change of) liver, not elsewhere classified; N39.0 Urinary tract infection, site not specified; R10.9 Unspecified abdominal pain; I10 Essential (primary) hypertension; E78.00 Pure hypercholesterolemia, unspecified
CPT/HCPCS: 71010; 74177; 76700; 80053; 80061; 81001; 82550; 83615; 83690; 83735; 84484; 85025; 87086; 93005; 96361; 96374; 96375; 99284; C9113; J1100; J1200; J1885; J7040; Q9966; Q9967

== ENCOUNTER 2016-12-09 22:29 | Emergency (ER) | payer OTHER ==
[2016-12-09 22:47] VITALS: BMI 25.4
[2016-12-09 22:58] VITALS: RESP 16; TEMP 98.5
--- NOTE | 2016-12-09 23:16 | ED PDOC ---
Arrival/HPI <Noel Arizmendi - Last Filed: 12/09/16 23:52> - General Historian: Patient - History of Present Illness Time/Duration: 1-3 hours Symptom Onset: Sudden Symptom Course: Improving Activities at Onset: Light Context: Work ([employer] ) <Jono Whiteside - Last Filed: 12/10/16 02:23> - General Chief Complaint: Palpitations Time Seen by Provider: 12/09/16 22:30 - History of Present Illness Narrative History of Present Illness (Text): 12/09/16 23:12 46yo F PMH HTN, HLD, gastritis 2/2 hiatal hernia, LEDEZMA and gallstones who presents to ED with palpitations, blurry vision and lightheadedness x2 hours. pt is a [employer] employee and was at work when she started feeling lightheaded and was brought down to ED, but denies LOC. pt states that she has a history of such episodes, but does not associate them with fatigue, lack of food, or positional changes. pt also denies recent illness, fevers, chills, n/v/d, chest pain, shortness of breath, headache, abdominal pain or other complaints. pt states that she recently had her BP med changed to Lisinopril but she has not taken it yet. She is not currently menstruating. PMD: Dr. Tapia (StevoJono vick) Past Medical History - Provider Review Nursing Documentation Reviewed: Yes - Past History Past History: Non-Contributing - Infectious Disease Hx of Infectious Diseases: None - Cardiac Hx Cardiac Disorders: Yes Hx Hyperlipemia: Yes Hx Hypertension: Yes - Pulmonary Hx Respiratory Disorders: No - Neurological Hx Neurological Disorder: No Other/Comment: pre-syncope - HEENT Hx HEENT Disorder: No - Renal Hx Renal Disorder: No - Endocrine/Metabolic Hx Endocrine Disorders: Yes Hx Hyperthyroidism: Yes - Hematological/Oncological Hx Blood Disorders: No - Integumentary Hx Dermatological Disorder: No - Musculoskeletal/Rheumatological Hx Musculoskeletal Disorders: No - Gastrointestinal Hx Gastrointestinal Disorders: Yes Hx Gastritis: Yes (hiatal hernia) - Genitourinary/Gynecological Hx Genitourinary Disorders: No - Psychiatric Hx Psychophysiologic Disorder: No Hx Substance Use: No - Past Surgical History Past Surgical History: No Previous - Surgical History Hx Orthopedic Surgery: Yes (R deQuervain release) - Anesthesia Hx Anesthesia: No Hx Anesthesia Reactions: No Hx Malignant Hyperthermia: No - Suicidal Assessment Feels Threatened In Home Enviroment: No <Jono Whiteside - Last Filed: 12/10/16 02:23> Family/Social History - Physician Review Nursing Documentation Reviewed: Yes Family/Social History: No Known Family HX Smoking Status: Unknown If Ever Smoked Hx Alcohol Use: No Hx Substance Use: No Hx Substance Use Treatment: No <Jono Whiteside - Last Filed: 12/10/16 02:23> Allergies/Home Meds <KyleighNoel - Last Filed: 12/09/16 23:52> <Jono Whiteside - Last Filed: 12/10/16 02:23> Allergies/Adverse Reactions: Allergies gtz Allergy (Verified 12/09/16 22:47) RASH Home Medications: Home Meds Medication Instructions Recorded Confirmed Simvastatin [Zocor] 20 mg PO DAILY 11/16/16 12/09/16 Famotidine [Pepcid] 20 mg PO DAILY 12/09/16 12/09/16 Lisinopril [Zestril] 5 mg PO DAILY 12/09/16 12/09/16 Simethicone [Gas-X] 125 mg PO DAILY 12/09/16 12/09/16 Review of Systems - Physician Review All systems were reviewed & negative as marked: Yes - Review of Systems Constitutional: Weight Change (increase). absent: Fevers Eyes: Vision Changes (blurry ) Respiratory: absent: SOB, Cough Cardiovascular: Palpitations. absent: Chest Pain, Edema, Syncope Gastrointestinal: absent: Abdominal Pain, Diarrhea, Nausea, Vomiting <Jono Whiteside - Last Filed: 12/10/16 02:23> Physical Exam Vital Signs Reviewed: Yes Appearance: Positive for: Well-Appearing Pain Distress: None Mental Status: Positive for: Alert and Oriented X 3 - Systems Exam Head: Present: Atraumatic, Normocephalic Pupils: Present: PERRL Extroacular Muscles: Present: EOMI Conjunctiva: Present: Normal Mouth: Present: Moist Mucous Membranes Neck: Present: Normal Range of Motion Respiratory/Chest: Present: Clear to Auscultation, Good Air Exchange. No: Accessory Muscle Use, Wheezes Cardiovascular: Present: Regular Rate and Rhythm, Normal S1, S2 Abdomen: Present: Normal Bowel Sounds. No: Tenderness, Distention Back: Present: Normal Inspection Upper Extremity: Present: Normal Inspection Lower Extremity: Present: Normal Inspection. No: Edema Neurological: Present: CN II-XII Intact, Speech Normal Skin: Present: Warm, Dry Psychiatric: Present: Alert, Oriented x 3 <Jono Whiteside - Last Filed: 12/10/16 02:23> Vital Signs Temp Pulse Resp BP Pulse Ox 12/09/16 22:57 98.5 F 87 16 142/92 H 98 Medical Decision Making - EKG Interpretation Interpreted by ED Physician: Yes Type: 12 lead EKG <Noel Arizmendi - Last Filed: 12/09/16 23:52> Re-evaluation Time: 00:13 Reassessment Condition: Re-examined, Unchanged - Lab Interpretations I have reviewed the lab results: Yes - RAD Interpretation Hosiery Repairer: ED Physician <Jono Whiteside - Last Filed: 12/10/16 02:23> ED Course and Treatment: Impression: Pt seen and evaluated with medical social worker. Pt, whose past medical history includes hypertension, hyperlipidemia, and gastritis, presented for palpitations , blurry vision, and light-headedness for 2 hora. Pt states she has experienced similar episodes in the past. Aware and agree with HPI, clinical findings, plan , and management. Plan: -- EKG -- CXR -- Labs, cardiac enzymes, BNP -- UA -- Reassess and disposition (Noel Arizmendi) 12/09/16 23:26 Impression: 46yo F presenting with pre-syncope likely orthostatic Plan: - Orthostatic VS - Labs - UA - EKG - CXR 12/09/16 23:27 EKG: NSR @ 97bpm. No ST segment or interval changes. 12/10/16 00:13 Orthostatic Vital Signs: laying: BP 134/79, HR 79 sitting: BP 132/80, HR 81 standing: BP 140/89, HR 89 12/10/16 01:55 Reassessment: pt is ambulating well with no dizziness or lightheadedness. currently has no complaints. CXR is unremarkable, as read by me. It was explained to the patient that she should f/u Cardio and PMD for management and further evaluation. Patient understands. (Jono Whiteside) - Lab Interpretations Lab Results: 12/09/16 23:14 12/09/16 23:14 Lab Results 12/09/16 23:25: Urine Color Straw, Urine Appearance Clear, Urine pH 6.0, Ur Specific [place] <= 1.005, Urine Protein Negative, Urine Glucose (UA) Negative, Urine Ketones Negative, Urine Blood Trace-lysed H, Urine Nitrate Negative, Urine Bilirubin Negative, Urine Urobilinogen 0.2, Ur Leukocyte Esterase Small H , Urine RBC 0 - 2, Urine WBC 2 - 5, Ur Epithelial Cells 4 - 5, Urine Bacteria Few 12/09/16 23:14: Sodium 139, Potassium 4.1, Chloride 104, Carbon Dioxide 25, Anion Gap 14, BUN 16, Creatinine 0.6 L, Est GFR ( Amer) > 60, Est GFR ( Non-Af Amer) > 60, Random Glucose 127 H, Calcium 8.9, Magnesium 2.1, Total Bilirubin 0.6, AST 39 H, ALT 59 H, Alkaline Phosphatase 77, Lactate Dehydrogenase 509, Total Creatine Kinase 34 L, Troponin I < 0.01, NT-Pro-B Natriuret Pep 50.6, Total Protein 7.5, Albumin 4.2, Globulin 3.3, Albumin/ Globulin Ratio 1.3 12/09/16 23:14: WBC 5.8 D, RBC 4.18, Hgb 13.5, Hct 38.4, MCV 91.9, MCH 32.3, MCHC 35.2, RDW 12.4, Plt Count 359, MPV 8.3, Gran % 61.3, Lymph % (Auto) 28.3, Travis % (Auto) 8.4 H, Eos % (Auto) 1.0 L, Baso % (Auto) 1.0, Gran # 3.55, Lymph # 1.6, Travis # 0.5, Eos # 0.1, Baso # 0.06 - RAD Interpretation Radiology Orders: 12/09/16 23:10 CHEST PORTABLE [RAD] Stat - Medication Orders Current Medication Orders: Discontinued Medications Sodium Chloride (Sodium Chloride 0.9%) 1,000 mls @ 999 mls/hr IV .Q1H1M STA Stop: 12/10/16 01:30 Last Admin: 12/10/16 00:56 Dose: 999 mls/hr eMAR Start Stop Document 12/10/16 00:56 SC (Rec: 12/10/16 00:56 SC [id number]) Intravenous Solution Start Date 12/10/16 Start Time 00:56 End Date 12/10/16 End time 01:56 Total Infusion Time 60 Ondansetron HCl (Zofran Inj) 4 mg IVP STAT STA Stop: 12/10/16 00:31 Last Admin: 12/10/16 00:56 Dose: 4 mg IVP Administration Document 12/10/16 00:56 SC (Rec: 12/10/16 00:56 [id number] Charges for Administration # of IVP Administrations 1 Pantoprazole Sodium (Protonix Inj) 80 mg IVP STAT STA Stop: 12/10/16 01:10 Disposition/Present on Arrival <Noel Arizmendi - Last Filed: 12/09/16 23:52> - Present on Arrival Any Indicators Present on Arrival: No History of DVT/PE: No History of Uncontrolled Diabetes: No Urinary Catheter: No History of Decub. Ulcer: No History Surgical Site Infection Following: None - Disposition Have Diagnosis and Disposition been Completed?: Yes Disposition Time: 01:57 Patient Plan: Discharge <Jono Whiteside - Last Filed: 12/10/16 02:23> - Disposition Diagnosis: Pre-syncope Disposition: HOME/ ROUTINE Patient Problems: Current Active Problems Problem Status Onset Pre-syncope Acute Condition: GOOD Discharge Instructions (ExitCare): Near Syncope (ED) Additional Instructions: - please f/u PMD within 1 week - please f/u Cardiology and Neurology to workup your lightheadedness - please cont home meds - if you experience worsening of symptoms, please return to ED for further workup Referrals: Twin Avila MD [Staff Provider] - Follow up with primary Sinan Tapia MD [Medical Doctor] - Follow up with primary Amilcar Wild MD [Primary Care Provider] - Follow up with primary Danita Ortiz MD [Staff Provider] - Follow up with primary Forms: [employer] (Divehi)
[2016-12-09 23:27] LABS: BASO # 0.06 K/mm3 (0.0-2.0); EOS # 0.1 (0.0-0.7); GRAN # 3.55 (1.4-6.5); GRAN % 61.3 % (50.0-68.0); HEMATOCRIT 38.4 % (36.0-48.0); LYMPH # 1.6 (1.2-3.4); LYMPH % 28.3 % (22.0-35.0); MEAN CELL VOLUME 91.9 fl (80.0-105.0); MEAN CORPUSCULAR HEMOGLOBIN 32.3 pg (25.0-35.0); MEAN CORPUSCULAR HGB CONC 35.2 g/dl (31.0-37.0); MEAN PLATELET VOLUME 8.3 fl (7.0-11.0); MONO # 0.5 (0.1-0.6); MONO % 8.4 % (1.0-6.0); RED CELL DISTRIBUTION WIDTH 12.4 % (11.5-14.5); WHITE BLOOD COUNT 5.8 10^3/ul (4.5-11.0)
[2016-12-09 23:37] LABS: ALB/GLOB RATIO 1.3 (1.1-1.8); ALKALINE PHOSPHATASE 77 U/L (38-126); ALT/SGPT 59 U/L (7-56); AST/SGOT 39 U/L (14-36); BILIRUBIN,TOTAL 0.6 mg/dL (0.2-1.3); BLOOD UREA NITROGEN 16 mg/dL (7-21); CALCIUM 8.9 mg/dL (8.4-10.5); CARBON DIOXIDE 25 mmol/L (21-33); GFR AFRICAN-AMERICAN > 60; GLUCOSE,RANDOM 127 mg/dL (70-110); MAGNESIUM 2.1 mg/dL (1.7-2.2); POTASSIUM 4.1 mmol/L (3.6-5.0); SODIUM 139 mmol/L (132-148); TOTAL PROTEIN 7.5 g/dL (5.8-8.3)
[2016-12-09 23:54] LABS: URINE BILIRUBIN NEGATIVE (NEGATIVE); URINE BLOOD TRACE-LYSED (NEGATIVE); URINE GLUCOSE (UA) NEGATIVE (NEGATIVE); URINE KETONE NEGATIVE (NEGATIVE); URINE LEUKOCYTE ESTERASE SMALL Leu/uL (NEGATIVE); URINE PROTEIN NEGATIVE mg/dL (<30 mg/dL); URINE UROBILINOGEN 0.2 E.U./dL (<1 E.U./dL)
[2016-12-09 23:57] LABS: TROPONIN I < 0.01 ng/mL
[2016-12-09 23:59] LABS: CHLORIDE 104 mmol/L (98-107)
[2016-12-10 00:08] LABS: URINE APPEARANCE CLEAR (CLEAR); URINE COLOR STRAW (YELLOW)
[2016-12-10 00:11] LABS: URINE RBC 0 - 2 /hpf (0-2)
[2016-12-10 00:12] LABS: URINE BACTERIA FEW (NEG)
[2016-12-10] MEDS ORDERED: Sodium Chloride 0.9% 1,000 ML IV STA (00:30)
[2016-12-10 03:03] VITALS: BP 132/76; PULSE 86; O2SAT 100
--- NOTE | 2016-12-10 11:18 | RAD ---
HISTORY: pre-syncope COMPARISON: Comparison chest 11/16/2016 FINDINGS: LUNGS: No active pulmonary disease. PLEURA: No significant pleural effusion identified, no pneumothorax apparent. CARDIOVASCULAR: Normal. OSSEOUS STRUCTURES: No significant abnormalities. VISUALIZED UPPER ABDOMEN: Normal. OTHER FINDINGS: None. IMPRESSION: No active disease.
--- NOTE | 2016-12-11 17:12 | CARD ---
APPROVED REPORT EKG Measurement Heart [id number] <Conclusion> Normal sinus rhythm Normal ECG
== END 2016-12-10 02:15 | disposition home or self-care (01) ==
LOC: ED 22:29
DX: R55 Syncope and collapse (principal); E78.5 Hyperlipidemia, unspecified; I10 Essential (primary) hypertension; E05.90 Thyrotoxicosis, unspecified without thyrotoxic crisis or storm
CPT/HCPCS: 71010; 80053; 81001; 82550; 83615; 83735; 83880; 84484; 85025; 87086; 93005; 96361; 96374; 99284; J2405; J7040

== ENCOUNTER 2016-12-11 11:54 | Inpatient (IN) | payer OTHER ==
[2016-12-11 12:19] VITALS: BMI 24.5
--- NOTE | 2016-12-11 12:30 | ED PDOC ---
Arrival/HPI - General Chief Complaint: Abdominal Pain Time Seen by Provider: 12/11/16 12:16 Historian: Patient - Critical Care Narrative Critical Care (Text): 12/11/16 12:26 pt is a 46 yo who presents with c/o epigastric pain for the past 2 days.Pt was seen 2 days ago after had near syncope associated with the pain.Pt reports that after eating w/in 5 min she gets epigastric discomfort assc with nausea but no vomiting.Denies hx PUD,was recently noted to have gallstones.Denies BRBPR.Last BM today which was formed brown stoolPt is scheduled for EGD on and is followed by Dr Bazzi Past Medical History - Provider Review Nursing Documentation Reviewed: Yes - Past History Past History: Non-Contributing - Infectious Disease Hx of Infectious Diseases: None - Tetanus Immunization Tetanus Immunization: Unknown - Cardiac Hx Cardiac Disorders: Yes Hx Hypertension: Yes - Pulmonary Hx Respiratory Disorders: No - Neurological Hx Neurological Disorder: No Other/Comment: pre-syncope - HEENT Hx HEENT Disorder: No - Renal Hx Renal Disorder: No - Endocrine/Metabolic Hx Endocrine Disorders: Yes Hx Hyperthyroidism: Yes - Hematological/Oncological Hx Blood Disorders: No - Integumentary Hx Dermatological Disorder: No - Musculoskeletal/Rheumatological Hx Musculoskeletal Disorders: No - Gastrointestinal Hx Gastrointestinal Disorders: Yes Hx Gall Bladder Disease: Yes Hx Gastritis: Yes (hiatal hernia) Hx Gastrointestinal Ulcer: No - Genitourinary/Gynecological Hx Genitourinary Disorders: No - Psychiatric Hx Psychophysiologic Disorder: No Hx Substance Use: No - Past Surgical History Past Surgical History: No Previous - Surgical History Hx Orthopedic Surgery: Yes (R deQuervain release) - Anesthesia Hx Anesthesia: Yes Hx Anesthesia Reactions: No Hx Malignant Hyperthermia: No - Suicidal Assessment Feels Threatened In Home Enviroment: No Family/Social History Family/Social History: No Known Family HX Smoking Status: Unknown If Ever Smoked Hx Alcohol Use: No Hx Substance Use: No Hx Substance Use Treatment: No Allergies/Home Meds Allergies/Adverse Reactions: Allergies gtz Allergy (Verified 12/09/16 22:47) RASH Home Medications: Home Meds Medication Instructions Recorded Confirmed Simvastatin [Zocor] 20 mg PO DAILY 11/16/16 12/09/16 Famotidine [Pepcid] 20 mg PO DAILY 12/09/16 12/09/16 Lisinopril [Zestril] 5 mg PO DAILY 12/09/16 12/09/16 Simethicone [Gas-X] 125 mg PO DAILY 12/09/16 12/09/16 Physical Exam Vital Signs Reviewed: Yes Vital Signs Temp Pulse Resp BP Pulse Ox 12/11/16 11:54 98.3 F 89 16 112/72 100 Temperature: Afebrile Blood Pressure: Normal Pulse: Regular Respiratory Rate: Normal Appearance: Positive for: Uncomfortable Pain Distress: Moderate Mental Status: Positive for: Alert and Oriented X 3 - Systems Exam Head: Present: Atraumatic, Normocephalic Pupils: Present: PERRL Extroacular Muscles: Present: EOMI Conjunctiva: Present: Normal Ears: Present: Normal, NORMAL TM Mouth: Present: Moist Mucous Membranes Respiratory/Chest: Present: Clear to Auscultation, Good Air Exchange Cardiovascular: Present: Regular Rate and Rhythm, Murmurs Abdomen: Present: Tenderness, Other (tenderness is confined to the epigasric area). No: Peritoneal Signs, Rebound, Guarding, McBurney's Point Tender, Rovsing's Sign Present Medical Decision Making ED Course and Treatment: 12/11/16 13:[address] Bazzi her GI physician who requests that we admit pt for obs admission and he will perform EGD in AM.Asks that we admit to Dr Kelley Reassessment Condition: Re-examined, Improving,but remains with symptoms - Medication Orders Current Medication Orders: Sodium Chloride (Sodium Chloride 0.9%) 1,000 mls @ 999 mls/hr IV .Q1H1M STA Stop: 12/11/16 13:33 Sodium Chloride (Sodium Chloride 0.9%) 1,000 mls @ 100 mls/hr IV .Q10H DUSTIN Discontinued Medications Al Hydrox/Mg Hydrox/Simethicone (Maalox Plus 30 Ml) 30 ml PO STAT STA Stop: 12/11/16 12:37 Belladonna/Phenobarbital ( Elixir) 5 ml PO STAT STA Stop: 12/11/16 12:36 Lidocaine HCl (Lidocaine 2% Viscous) 15 ml MM STAT STA Stop: 12/11/16 12:36 Morphine Sulfate (Morphine) 4 mg IVP STAT STA Stop: 12/11/16 13:05 Ondansetron HCl (Zofran Inj) 4 mg IVP STAT STA Stop: 12/11/16 12:34 Pantoprazole Sodium (Protonix Inj) 40 mg IVP STAT STA Stop: 12/11/16 12:35 Disposition/Present on Arrival - Present on Arrival Any Indicators Present on Arrival: No History of DVT/PE: No History of Uncontrolled Diabetes: No Urinary Catheter: No History of Decub. Ulcer: No History Surgical Site Infection Following: None - Disposition Have Diagnosis and Disposition been Completed?: Yes Diagnosis: Abdominal pain Disposition: HOSPITALIZED Disposition Time: 13:09 Patient Plan: Admission Patient Problems: Current Active Problems Problem Status Onset Abdominal pain Acute Condition: FAIR Referrals: Amilcar Wild MD [Primary Care Provider] - Follow up with primary Forms: [facility] ([place])
[2016-12-11] MEDS ORDERED: Sodium Chloride 0.9% 1,000 ML IV STA (12:33)
[2016-12-11] MEDS ORDERED: Atrop/Hyosc/Scopal/PB Elixir (120 ml) PO STA (12:35)
[2016-12-11] MEDS ORDERED: Alum-Mag Hydrox-Simethicone Susp (30 mL) PO STA (12:36)
[2016-12-11] MEDS ORDERED: Morphine 4 mg/ml ISec IVP STA (13:04)
[2016-12-11 13:44] LABS: BASO # 0.04 K/mm3 (0.0-2.0); BASO % 0.6 % (0.0-3.0); EOS % 0.5 % (1.5-5.0); GRAN # 3.87 (1.4-6.5); GRAN % 60.9 % (50.0-68.0); HEMATOCRIT 39.9 % (36.0-48.0); LYMPH # 2.1 (1.2-3.4); LYMPH % 32.5 % (22.0-35.0); MEAN CELL VOLUME 91.9 fl (80.0-105.0); MEAN CORPUSCULAR HEMOGLOBIN 32.7 pg (25.0-35.0); MEAN CORPUSCULAR HGB CONC 35.6 g/dl (31.0-37.0); MEAN PLATELET VOLUME 8.4 fl (7.0-11.0); MONO # 0.4 (0.1-0.6); MONO % 5.5 % (1.0-6.0); RED CELL DISTRIBUTION WIDTH 12.5 % (11.5-14.5); WHITE BLOOD COUNT 6.4 10^3/ul (4.5-11.0)
[2016-12-11 15:15] LABS: ALB/GLOB RATIO 1.3 (1.1-1.8); ALKALINE PHOSPHATASE 72 U/L (38-126); ALT/SGPT 59 U/L (7-56); AST/SGOT 26 U/L (14-36); BILIRUBIN,TOTAL 0.8 mg/dL (0.2-1.3); BLOOD UREA NITROGEN 13 mg/dL (7-21); CALCIUM 8.4 mg/dL (8.4-10.5); CARBON DIOXIDE 26 mmol/L (21-33); CHLORIDE 106 mmol/L (98-107); GFR AFRICAN-AMERICAN > 60; GLUCOSE,RANDOM 95 mg/dL (70-110); LIPASE 95 U/L (23-300); POTASSIUM 3.7 mmol/L (3.6-5.0); SODIUM 141 mmol/L (132-148); TOTAL PROTEIN 6.9 g/dL (5.8-8.3)
[2016-12-11] MEDS ORDERED: Pneumococcal 23-Valent Vaccine IM ONE (15:29)
[2016-12-11] MEDS: Sodium Chloride 0.9% 1,000 ML IV SCH (16:54)
[2016-12-11] MEDS: Morphine 4 mg/ml ISec IVP PRN ×2 (17:53→23:41)
[2016-12-11] MEDS: Alum-Mag Hydrox-Simethicone Susp (30 mL) PO PRN (22:17)
--- NOTE | 2016-12-11 23:15 | CP.PCM.CON ---
History of Present Illness - History of Present Illness History of Present Illness: General Surgery - Dr. Cooley Reason for Consult: Abdominal pain 46yo F w/ hx of htn, presenting w/ epigastric abdominal pain x1 month and worsening for the past 2 days. Pt states she was seen in the ED in October at which time she had U/S and CT done which showed gallstones. She was scheduled to have an EGD done in December with Dr. Wild but the pain became acutely worse in the past 2 days so she decided to return to the ED. Pt describes the pain as a sharp/burning pain in the epigastric region radiating into the chest at times "like heart-burn". She had associated nausea, no vomiting at home but pt states she did vomit 1x after eating soup in the ED. She denies any Fevers/Chills, Diarrhea/Constipation, Dysuria/Hematuria, SOB, weakness, weight loss. PMH: HTN PSH: Dequervain release for tenosynovitis Drinks 1 glass red wine occasionally, 'vapes' daily, no cigarettes or elicit drug use All: cherries Pt. was seen on the floor. Labs and Vitals stable and WNL since admission. U/ S and CT done 11/16/2016 reviewed which show gallstones, hiatal hernia, fatty liver. Review of Systems - Review of Systems All systems: reviewed and no additional remarkable complaints except (as per HPI ) Past Patient History - Infectious Disease Hx of Infectious Diseases: None - Tetanus Immunizations Tetanus Immunization: Unknown - Past Social History Smoking Status: Former Smoker - CARDIAC Hx Cardiac Disorders: Yes Hx Hypercholesterolemia: Yes Hx Hypertension: Yes - PULMONARY Hx Respiratory Disorders: No - NEUROLOGICAL Hx Neurological Disorder: No Other/Comment: pre-syncope - HEENT Hx HEENT Problems: No - RENAL Hx Chronic Kidney Disease: No - ENDOCRINE/METABOLIC Hx Endocrine Disorders: Yes Hx Hyperthyroidism: Yes - HEMATOLOGICAL/ONCOLOGICAL Hx Blood Disorders: No - INTEGUMENTARY Hx Dermatological Problems: No - MUSCULOSKELETAL/RHEUMATOLOGICAL Hx Musculoskeletal Disorders: Yes (CERVICAL LUMBAR SPINE PAIN/INJURY, TENOSYNOVITIS) Hx Falls: No - GASTROINTESTINAL Hx Gastrointestinal Disorders: Yes (HIATAL HERNIA) Hx Gall Bladder Disease: Yes (GALLSTONES 10-16-17) Hx Ulcer: Yes - GENITOURINARY/GYNECOLOGICAL Hx Genitourinary Disorders: No - PSYCHIATRIC Hx Psychophysiologic Disorder: No Hx Substance Use: No - SURGICAL HISTORY Hx Surgeries: Yes Hx Orthopedic Surgery: Yes (R deQuervain release) - ANESTHESIA Hx Anesthesia: Yes Hx Anesthesia Reactions: No Hx Malignant Hyperthermia: No Meds Allergies/Adverse Reactions: Allergies Allergy/AdvReac Type Severity Reaction Status Date / Time gtz Allergy RASH Verified 12/11/16 15:05 - Medications Medications: Current Medications Al Hydrox/Mg Hydrox/Simethicone (Maalox Plus 30 Ml) 30 ml PO Q6H PRN PRN Reason: Indigestion / Heartburn Last Admin: 12/11/16 22:17 Dose: 30 ml Sodium Chloride (Sodium Chloride 0.9%) 1,000 mls @ 100 mls/hr IV .Q10H DUSTIN Last Admin: 12/11/16 16:54 Dose: 100 mls/hr Morphine Sulfate (Morphine) 4 mg IVP Q4H PRN PRN Reason: Pain, moderate (4-7) Last Admin: 12/11/16 17:53 Dose: 4 mg Ondansetron HCl (Zofran Inj) 4 mg IVP Q4H PRN PRN Reason: Nausea/Vomiting Last Admin: 12/11/16 21:38 Dose: 4 mg Pantoprazole Sodium (Protonix Inj) 40 mg IVP DAILY DUSTIN Physical Exam - Constitutional Appears: No Acute Distress - Head Exam Head Exam: ATRAUMATIC, NORMAL INSPECTION, NORMOCEPHALIC - Eye Exam Eye Exam: EOMI, Normal appearance. absent: Scleral icterus - ENT Exam ENT Exam: Mucous Membranes Dry - Respiratory Exam Respiratory Exam: NORMAL BREATHING PATTERN. absent: Respiratory Distress - Cardiovascular Exam Cardiovascular Exam: REGULAR RHYTHM - GI/Abdominal Exam GI & Abdominal Exam: Guarding (epigastric), Soft, Tenderness (epigastric). absent: Distended, Hernia, Rebound, Rigid - Extremities Exam Extremities exam: Positive for: normal inspection. Negative for: pedal edema - Neurological Exam Neurological exam: Alert, Oriented x3 - Psychiatric Exam Psychiatric exam: Normal Affect, Normal Mood - Skin Skin Exam: Dry, Intact Results - Vital Signs Recent Vital Signs: Last Vital Signs Temp 98.1 F 12/11/16 16:00 Pulse 63 12/11/16 16:00 Resp 20 12/11/16 16:00 BP 113/60 12/11/16 16:00 Pulse Ox 98 12/11/16 16:00 - Labs Result Diagrams: 12/11/16 13:38 12/11/16 14:40 Labs: Laboratory Results - last 24 hr 12/11/16 12/11/16 13:38 14:40 WBC 6.4 RBC 4.34 Hgb 14.2 Hct 39.9 MCV 91.9 MCH 32.7 MCHC 35.6 RDW 12.5 Plt Count 385 MPV 8.4 Gran % 60.9 Lymph % (Auto) 32.5 Swisher % (Auto) 5.5 Eos % (Auto) 0.5 L Baso % (Auto) 0.6 Gran # 3.87 Lymph # 2.1 Swisher # 0.4 Eos # 0.0 Baso # 0.04 Sodium 141 Potassium 3.7 Chloride 106 Carbon Dioxide 26 Anion Gap 13 BUN 13 Creatinine 0.5 L Est GFR ( Amer) > 60 Est GFR (Non-Af Amer) > 60 Random Glucose 95 Calcium 8.4 Total Bilirubin 0.8 AST 26 ALT 59 H Alkaline Phosphatase 72 Total Protein 6.9 Albumin 4.0 Globulin 3.0 Albumin/Globulin Ratio 1.3 Lipase 95 Assessment & Plan - Assessment and Plan (Free Text) Assessment: 46F w/ epigastric abdominal pain and nausea -F/U EGD tomorrow -Consider further evaluation of GB if EGD negative -Will follow with you JEVON Leyva PGY3
--- NOTE | 2016-12-11 23:40 | CON ---
HISTORY OF PRESENT ILLNESS: This patient was seen and evaluated earlier. This 46-year-old patient presented to the emergency room with complaining of worsening of the epigastric pain over the past 2 days. Pain she mentions is mainly in the epigastric area with nausea. The patient had similar episode about a month ago and she had a pressure-like sensation in the epigastric area radiating to the back and lower chest. The patient was found to have mildly elevated lipase level and had multiple gallstones. The patient was sent home with PPI. The patient was seen in the office and scheduled for an EGD, US as an outpatient. The patient had worsening of the symptoms for the past 2 days and presented to the emergency room. No fever. PAST MEDICAL HISTORY: Other past medical history is significant for dyslipidemia, hypertension. PAST SURGICAL HISTORY: Right carpal tunnel release surgery. REVIEW OF SYSTEMS: Otherwise positive as above. PHYSICAL EXAMINATION: GENERAL: The patient is lying on the bed, not in acute distress. VITAL SIGNS: Temperature is 98.1, blood pressure 113/60, pulse 63, respirations 20 and O2 saturation 98%. HEENT: Atraumatic. Anicteric. NECK: Supple. HEART: S1 and S2 heard. LUNGS: Bilateral air entry present. ABDOMEN: Soft. There is tenderness present in the epigastric and right upper quadrant areas. There is no rebound or guarding. EXTREMITIES: No cyanosis. No clubbing. NEUROLOGIC: Alert and oriented, moves all the extremities. LABORATORY DATA: CBC essentially unremarkable. Chemistry shows mildly elevated ALT of 59. Urinalysis shows trace leucocytes. The patient had a CAT scan done on 11/16, which was reviewed, essentially unremarkable except for the hiatal hernia and fatty liver. Had an ultrasound scan of the abdomen done, showed multiple gallstones. IMPRESSION: This 46-year-old patient has known gallstone, hiatal hernia, presented with recurrent episodes of epigastric and upper abdominal pain to the emergency room. The patient is due to have an outpatient EGD and US evaluation. The patient presented to the emergency room with further worsening of the symptoms. The differential diagnosis should include biliary colic, rule out cholecystitis, gastroesophageal reflux disease, esophageal ulceration, peptic ulcer disease to be considered and also pancreatitis, these are less likely other differential diagnoses. RECOMMENDATIONS: Would recommend now is continue the proton pump inhibitor. 1. We will start the patient on Protonix 40 mg q. 12 hourly. 2. Clear liquid diet. 3. The patient would benefit from an EGD and US for further evaluation. 4. We will get a surgical consultation. 5. We will continue to closely follow up her care and suggest further management based on the clinical course Amilcar Wild MD
[2016-12-12] MEDS: Sodium Chloride 0.9% 1,000 ML IV SCH ×2 (01:00→10:46)
[2016-12-12] MEDS: Alum-Mag Hydrox-Simethicone Susp (30 mL) PO PRN (03:18)
--- NOTE | 2016-12-12 05:28 | HP ---
HISTORY OF PRESENT ILLNESS: The patient is a 46-year-old has been having abdominal pain for last 2 days, get worse after eating. She has similar episode few days ago. Pain was so severe, she vomited and she almost passed out. Denies any fever or chills. No hemoptysis. No hematemesis. No rectal bleeding. No black stools. The patient was recently told that she has gallstones. The patient was seen by Dr. Wild, who has scheduled her for endoscopy next month, but her pain was got worse, so she called Dr. Wild, who advised her come to emergency room. PAST MEDICAL HISTORY: Significant for; 1. Hypertension. 2. Hyperlipidemia. 3. History of gastritis. ALLERGIES: SHE IS ALLERGIC TO CHERRIES. SOCIAL HISTORY: She works as nurse, used to be heavy smoker. Socially drinks. PHYSICAL EXAMINATION GENERAL: She is awake, alert, oriented, complain of feeling dizzy and nauseous. VITAL SIGNS: She is afebrile. Pulse 63, respirations 20 and blood pressure 113/60. LUNGS: Bilateral fair airflow. No rhonchi or crackle. HEART: S1 and S2 audible. ABDOMEN: Soft, slight epigastric discomfort. No rebound, no guarding. NEUROLOGICAL: She is awake, alert, oriented and communicative. LABORATORY DATA: WBC 6.4, hemoglobin 14, hematocrit 39 and platelet 385. Chemistry; sodium 141, potassium 3.7, chloride 106, CO2 of 26, BUN 13, creatinine 0.5 and blood sugar of 95. LFTs are within normal limits. The patient had abdominal sonogram done on 11/16/2016 that showed mild cholelithiasis, no biliary dilatation, mild diffuse increase echogenicity in the liver secondary to fatty liver. CT scan of the abdomen and pelvis done on 11/16/2016 shows hiatal hernia and mural thickening within the stomach possibly related to distention with fatty liver. ASSESSMENT 1. Intractable nausea and epigastric pain. 2. Hypertension. 3. Cholelithiasis. PLAN: We will keep the patient on liquid, I will give IV fluid, IV Protonix, and Zofran as needed. The patient is scheduled to have to endoscopy done tomorrow. The patient has postprandial nausea and vomiting, we will rule out gastroparesis versus vascular. If her endoscopy is unremarkable, we will order for HIDA scan and also request for surgical evaluation. We will followup her CBC and CMP in a.m. Georgi Kelley MD
[2016-12-12 07:34] LABS: BASO # 0.03 K/mm3 (0.0-2.0); BASO % 0.5 % (0.0-3.0); EOS # 0.1 (0.0-0.7); EOS % 1.1 % (1.5-5.0); GRAN # 3.33 (1.4-6.5); GRAN % 53.4 % (50.0-68.0); HEMATOCRIT 34.7 % (36.0-48.0); LYMPH # 2.2 (1.2-3.4); LYMPH % 35.4 % (22.0-35.0); MEAN CORPUSCULAR HEMOGLOBIN 31.9 pg (25.0-35.0); MEAN CORPUSCULAR HGB CONC 34.3 g/dl (31.0-37.0); MEAN PLATELET VOLUME 8.4 fl (7.0-11.0); MONO # 0.6 (0.1-0.6); MONO % 9.6 % (1.0-6.0); RED CELL DISTRIBUTION WIDTH 12.5 % (11.5-14.5); WHITE BLOOD COUNT 6.2 10^3/ul (4.5-11.0)
[2016-12-12 07:44] LABS: INR 0.99 (0.93-1.08); PARTIAL THROMBOPLASTIN TIME 29.1 Seconds (23.7-30.8)
[2016-12-12 07:46] LABS: ALB/GLOB RATIO 1.4 (1.1-1.8); ALKALINE PHOSPHATASE 58 U/L (38-126); ALT/SGPT 50 U/L (7-56); AST/SGOT 27 U/L (14-36); BILIRUBIN,TOTAL 0.9 mg/dL (0.2-1.3); BLOOD UREA NITROGEN 14 mg/dL (7-21); CARBON DIOXIDE 24 mmol/L (21-33); CHLORIDE 107 mmol/L (98-107); GFR AFRICAN-AMERICAN > 60; GLUCOSE,RANDOM 91 mg/dL (70-110); POTASSIUM 3.5 mmol/L (3.6-5.0); SODIUM 139 mmol/L (132-148); TOTAL PROTEIN 6.3 g/dL (5.8-8.3)
[2016-12-12] MEDS ORDERED: Potassium Chloride 20 mEq ER Tab PO ONE (09:27)
[2016-12-12] MEDS ORDERED: Sodium Chloride 0.9% 1,000 ML IV SCH (15:00)
[2016-12-12] MEDS ORDERED: Benzocaine/Butamben/Tetracai 14-2-2% TOP Spray TOP ONE (15:05)
[2016-12-12] MEDS ORDERED: Propofol 10 mg/ml 1,000 MG/100 ML VIAL ONE (15:05)
[2016-12-12] MEDS ORDERED: Midazolam 2 MG/2 ML VIAL ONE (15:09)
--- NOTE | 2016-12-12 15:18 | CP.PCM.PN ---
Subjective - Date & Time of Evaluation Date of Evaluation: 12/12/16 Time of Evaluation: 15:15 - Subjective Subjective: Surgery Pt s&e. c/o epigastric, RUQ pain, nausea and vomiting. Pt is getting EGD today. Objective - Vital Signs/Intake and Output Vital Signs (last 24 hours): Temp Pulse Resp BP Pulse Ox 98.1 F 57 L 20 110/54 L 97 12/12/16 14:51 12/12/16 14:51 12/12/16 14:51 12/12/16 14:51 12/12/16 14:51 Intake and Output: 12/12/16 12/12/16 06:59 18:59 Intake Total 0 Balance 0 - Medications Medications: Current Medications Al Hydrox/Mg Hydrox/Simethicone (Maalox Plus 30 Ml) 30 ml PO Q6H PRN PRN Reason: Indigestion / Heartburn Last Admin: 12/12/16 03:18 Dose: 30 ml Sodium Chloride (Sodium Chloride 0.9%) 1,000 mls @ 100 mls/hr IV .Q10H DUSTIN Last Admin: 12/12/16 10:46 Dose: 100 mls/hr Sodium Chloride (Sodium Chloride 0.9%) 1,000 mls @ 75 mls/hr IV .[id number] DUSTIN Stop: 12/12/16 17:01 Morphine Sulfate (Morphine) 4 mg IVP Q4H PRN PRN Reason: Pain, moderate (4-7) Last Admin: 12/11/16 23:41 Dose: 4 mg Ondansetron HCl (Zofran Inj) 4 mg IVP Q4H PRN PRN Reason: Nausea/Vomiting Last Admin: 12/12/16 01:15 Dose: 4 mg Pantoprazole Sodium (Protonix Inj) 40 mg IVP DAILY DUSTIN Last Admin: 12/12/16 09:56 Dose: 40 mg - Labs Labs: 12/12/16 07:27 12/12/16 07:27 PT 10.7 Seconds (9.9-11.8) 12/12/16 07:27 INR 0.99 (0.93-1.08) 12/12/16 07:27 APTT 29.1 Seconds (23.7-30.8) 12/12/16 07:27 - Constitutional Appears: In Acute Distress - Head Exam Head Exam: ATRAUMATIC, NORMAL INSPECTION, NORMOCEPHALIC - Eye Exam Eye Exam: EOMI, Normal appearance, PERRL Pupil Exam: NORMAL ACCOMODATION, PERRL - ENT Exam ENT Exam: Mucous Membranes Moist, Normal Exam - Neck Exam Neck Exam: Full ROM, Normal Inspection. absent: Lymphadenopathy - Respiratory Exam Respiratory Exam: Clear to Ausculation Bilateral, NORMAL BREATHING PATTERN - Cardiovascular Exam Cardiovascular Exam: REGULAR RHYTHM, +S1, +S2. absent: Murmur - GI/Abdominal Exam GI & Abdominal Exam: Soft, Tenderness, Normal Bowel Sounds. absent: Distended, Guarding Additional comments: TTP ruq and epigastric area. - Extremities Exam Extremities Exam: Full ROM, Normal Capillary Refill, Normal Inspection. absent : Joint Swelling, Pedal Edema - Back Exam Back Exam: NORMAL INSPECTION - Neurological Exam Neurological Exam: Alert, Awake, CN II-XII Intact, Normal Gait, Oriented x3 - Psychiatric Exam Psychiatric exam: Normal Affect, Normal Mood - Skin Skin Exam: Dry, Intact, Normal Color, Warm Assessment and Plan - Assessment and Plan (Free Text) Assessment: 46F w/ epigastric abdominal pain and nausea/Vomiting -F/U EGD today -Consider further evaluation of GB if EGD negative: Will order US -F/U HIDA -NPO -Will follow with you JEVON Cooley
[2016-12-12] MEDS ORDERED: Propofol 10 mg/ml Inj (20 ML) ONE (15:56)
--- NOTE | 2016-12-12 19:04 | NM ---
PROCEDURE: Nuclear Medicine Hepatobiliary Scan HISTORY: abdominal pain COMPARISON: 11/16/2016 CT abdomen and pelvis. 11/16/2016 abdominal ultrasound. TECHNIQUE: 5.6 mCi of technetium 99m Mebrofenin was administered intravenously. Planar images of the abdomen were obtained at 5 min intervals to 60 mins. Delayed images were also obtained. FINDINGS: LIVER: Timely and homogenous uptake. COMMON BILE DUCT: identified at 5 mins. GALLBLADDER: Likely identified at 15 mins. However there is accumulation of radionuclide medial to the expected location of the gallbladder and this may reside within a cystic mass interposed between the gallbladder and the common duct. SMALL BOWEL: Identified at 15 mins. IMPRESSION: Abnormal Hepatobiliary Scan. Difficult to determine whether radionuclide is identified within the gallbladder or the cystic mass as described above. Please note: Review of the prior CT scan suggesting cystic mass interposed between the gallbladder and the common bile duct. This measures approximately 3.81 x 3.4 cm. Radionuclide is not evident, apparent within this cystic mass.
[2016-12-12] MEDS ORDERED: Gadodiamide 287 MG/ML VIAL (15ML) IV ONE (19:16)
[2016-12-12] MEDS: Morphine 4 mg/ml ISec IVP PRN (21:06)
--- NOTE | 2016-12-12 22:23 | PN ---
DATE: SUBJECTIVE: The patient is 46-year-old seen and examined, still has epigastric pain that get worse after eating. This morning I got call that she was feeling dizzy. She was little hypotensive, did feel better with Antivert. Schedule for endoscopy and I got a call from Dr. Wild. Her endoscopy seems to be okay; however, there is a mass in her gallbladder, could be inflammation along with cholelithiasis versus polyp. PHYSICAL EXAMINATION This morning when I examined the patient; VITAL SIGNS: She is afebrile, pulse 72, respirations 14, blood pressure 112/68. LUNGS: Bilateral fair airflow. No rhonchi or crackle. HEART: S1 and S2 audible. ABDOMEN: Soft with epigastric discomfort. Nontender, no rebound, no guarding. NEUROLOGIC: She is awake, alert, oriented and communicative. LABORATORY DATA: WBC 6.2, hemoglobin 11.9, hematocrit 34.7, platelet of 347. Chemistry; sodium 139, potassium 3.5, chloride 107, CO2 24, BUN 14, creatinine 0.5, blood sugar is 91. LFTs are within normal limit. ASSESSMENT: Epigastric pain and gastritis, ruled out by endoscopy. She had HIDA scan done. HIDA scan showing cystic mass interposed between gallbladder and the common bile duct. PLAN: Discussed with Dr. Wild. We will do MRI, MRCP of the liver. Surgical consult by Dr. Cooley has been requested. We will continue to keep her n.p.o. and give her IV fluid and analgesic as needed. Georgi Kelley MD
[2016-12-13] MEDS: Morphine 4 mg/ml ISec IVP PRN (05:11)
[2016-12-13 07:39] LABS: ALB/GLOB RATIO 1.4 (1.1-1.8); ALKALINE PHOSPHATASE 62 U/L (38-126); ALT/SGPT 54 U/L (7-56); AST/SGOT 26 U/L (14-36); BILIRUBIN,TOTAL 0.8 mg/dL (0.2-1.3); BLOOD UREA NITROGEN 9 mg/dL (7-21); CALCIUM 8.2 mg/dL (8.4-10.5); CARBON DIOXIDE 26 mmol/L (21-33); CHLORIDE 107 mmol/L (95-110); GFR AFRICAN-AMERICAN > 60; GLUCOSE,RANDOM 91 mg/dL (70-110); POTASSIUM 3.7 mmol/L (3.6-5.0); SODIUM 141 mmol/L (132-148); TOTAL PROTEIN 6.3 g/dL (5.8-8.3)
--- NOTE | 2016-12-13 10:25 | MRI ---
PROCEDURE: Magnetic Resonance Cholangiopancreatography MRI of the abdomen with and without contrast HISTORY: COMPARISON: None available. TECHNIQUE: Multiplanar, multisequence MR images of the abdomen were obtained, including heavily T2 weighted MRCP images of the biliary system. Rotating maximum intensity projection images of the biliary system were generated. 15 cc of Omniscan FINDINGS: MRCP: The common bile duct is of a normal caliber. No evidence of choledocholithiasis. No intrahepatic biliary ductal dilatation. LIVER: Unremarkable. GALLBLADDER: There is a 21 mm hypointense stone in the fundus of the gallbladder. This portion of the fundus has a folded appearance which probably represents an anatomic variant such as a Phrygian cap or gallbladder diverticulum. There are no inflammatory changes to suggest cholecystitis SPLEEN: Unremarkable. PANCREAS: Unremarkable. ADRENALS: Unremarkable. KIDNEYS: Unremarkable. AORTA: No aneurysm. ASCITES: None. OTHER FINDINGS: There are no enhancing lesions IMPRESSION: There is a 21 mm hypointense stone in the fundus of the gallbladder. This portion of the fundus has a folded appearance which probably represents an anatomic variant such as a Phrygian cap or gallbladder diverticulum. There are no inflammatory changes to suggest cholecystitis
[2016-12-13] MEDS ORDERED: Morphine 2 mg/ml ISec IVP ONE (10:56)
--- NOTE | 2016-12-13 12:59 | CP.PCM.PN ---
<Danita Reynaga - Last Filed: 12/13/16 12:58> Subjective - Date & Time of Evaluation Date of Evaluation: 12/13/16 Time of Evaluation: 10:20 - Subjective Subjective: Seen and examined at the bedside earlier today, the patient is still having abdominal discomfort and nausea. She had an endoscopy and EUS yesterday found to have calcified structure between gallbladder and liver, gastritis. She went for an MRCP yesterday as well which is reporting a 2.6 cm ovoid area in the fundus and gallbladder may be gallbladder stone within a Phrygian cap Or gallbladder diverticulum. No dilation or acute cholecystitis is noted. Patient denies fever, chills, shortness of breath or chest pain. Objective - Vital Signs/Intake and Output Vital Signs (last 24 hours): Temp Pulse Resp BP Pulse Ox 98.8 F 70 20 103/53 L 97 12/13/16 07:00 12/13/16 07:00 12/13/16 07:00 12/13/16 07:00 12/13/16 07:00 Intake and Output: 12/13/16 12/13/16 06:59 18:59 Intake Total 1560 Balance 1560 - Medications Medications: Current Medications Al Hydrox/Mg Hydrox/Simethicone (Maalox Plus 30 Ml) 30 ml PO Q6H PRN PRN Reason: Indigestion / Heartburn Last Admin: 12/12/16 03:18 Dose: 30 ml Sodium Chloride (Sodium Chloride 0.9%) 1,000 mls @ 100 mls/hr IV .Q10H DUSTIN Last Admin: 12/12/16 10:46 Dose: 100 mls/hr Morphine Sulfate (Morphine) 4 mg IVP Q4H PRN PRN Reason: Pain, moderate (4-7) Last Admin: 12/13/16 05:11 Dose: 4 mg Ondansetron HCl (Zofran Inj) 4 mg IVP Q4H PRN PRN Reason: Nausea/Vomiting Last Admin: 12/13/16 11:08 Dose: 4 mg Pantoprazole Sodium (Protonix Inj) 40 mg IVP DAILY DUSTIN Last Admin: 12/13/16 10:06 Dose: Not Given - Labs Labs: 12/13/16 06:30 PT 10.7 Seconds (9.9-11.8) 12/12/16 07:27 INR 0.99 (0.93-1.08) 12/12/16 07:27 APTT 29.1 Seconds (23.7-30.8) 12/12/16 07:27 - Constitutional Appears: No Acute Distress - Head Exam Head Exam: NORMOCEPHALIC - Eye Exam Eye Exam: Normal appearance. absent: Scleral icterus - ENT Exam ENT Exam: Mucous Membranes Moist - Neck Exam Neck Exam: Normal Inspection - Respiratory Exam Respiratory Exam: NORMAL BREATHING PATTERN. absent: Respiratory Distress - Cardiovascular Exam Cardiovascular Exam: +S1, +S2 - GI/Abdominal Exam GI & Abdominal Exam: Soft, Tenderness (epigastric), Normal Bowel Sounds. absent : Guarding, Organomegaly, Rebound - Extremities Exam Extremities Exam: Normal Capillary Refill. absent: Calf Tenderness, Pedal Edema - Neurological Exam Neurological Exam: Alert, Awake, Oriented x3 - Skin Skin Exam: Dry, Warm Assessment and Plan - Assessment and Plan (Free Text) Assessment: Assessment: Abdominal pain, status post EGD/EUS found to have gastritis, calcified structure between the gallbladder and liver, status post MRCP with 2.6 cm void area and fundus and gallbladder possible gallbladder stone within Phrygian cap and or gallbladder diverticulum HTN HLD PLAN: NPO continue IV F Laparoscopic cholecystectomy this afternoon Continue PPI Pain mgt Follow-up endoscopy biopsy Seen and discussed w/ Dr. Wild. <Amilcar Wild V - Last Filed: 12/13/16 18:53> Objective - Vital Signs/Intake and Output Vital Signs (last 24 hours): Temp Pulse Resp BP Pulse Ox 98.1 F 74 22 138/85 97 12/13/16 18:10 12/13/16 18:10 12/13/16 18:10 12/13/16 18:10 12/13/16 18:10 Intake and Output: 12/13/16 12/13/16 06:59 18:59 Intake Total 1560 720 Balance 1560 720 - Medications Medications: Current Medications Al Hydrox/Mg Hydrox/Simethicone (Maalox Plus 30 Ml) 30 ml PO Q6H PRN PRN Reason: Indigestion / Heartburn Last Admin: 12/12/16 03:18 Dose: 30 ml Sodium Chloride (Sodium Chloride 0.9%) 1,000 mls @ 100 mls/hr IV .Q10H DUSTIN Last Admin: 12/12/16 10:46 Dose: 100 mls/hr Morphine Sulfate (Morphine) 4 mg IVP Q4H PRN PRN Reason: Pain, moderate (4-7) Last Admin: 12/13/16 05:11 Dose: 4 mg Ondansetron HCl (Zofran Inj) 4 mg IVP Q4H PRN PRN Reason: Nausea/Vomiting Last Admin: 12/13/16 11:08 Dose: 4 mg Pantoprazole Sodium (Protonix Inj) 40 mg IVP DAILY [facility] Last Admin: 12/13/16 10:06 Dose: Not Given - Labs Labs: 12/13/16 06:30 PT 10.7 Seconds (9.9-11.8) 12/12/16 07:27 INR 0.99 (0.93-1.08) 12/12/16 07:27 APTT 29.1 Seconds (23.7-30.8) 12/12/16 07:27 Attending/Attestation - Attestation I have personally seen and examined this patient.: Yes I have fully participated in the care of the patient.: Yes I have reviewed all pertinent clinical information, including history, physical exam and plan: Yes Notes (Text): This is an addendum to GI progress report dictated by Danita Reynaga APN.The patient was seen and examined earlier. Medical records, lab studies, imagings were reviewed. Last 24 hours events reviewed. Agreed with the above treatment plan as outlined in Danita Reynaga APN's notes the with the addition of the following MRCP reviewed and discussed with the surgical team on examination abdomen soft mild tenderness in the right upper right upper quadrant Scheduled for OR today 12/13/16 18:53
[2016-12-13] MEDS ORDERED: Midazolam 2 MG/2 ML VIAL ONE (17:59)
[2016-12-13] MEDS ORDERED: Propofol 10 mg/ml Inj (20 ML) ONE (17:59)
[2016-12-13] MEDS ORDERED: Rocuronium 10 mg/ml (5 ml) ONE ×2 (17:59→19:39)
[2016-12-13] MEDS ORDERED: Bupivacaine 0.5% Inj(30mL) ONE (18:03)
[2016-12-13] MEDS ORDERED: Iohexol 240 (50 ml) ONE (18:22)
--- NOTE | 2016-12-13 19:35 | PN ---
DATE: SUBJECTIVE: The patient is 46-year-old, seen and examined, still has abdominal discomfort, requiring IV analgesics. The patient had MRI and MRCP done showing a polypoid mass along with a stone in the gallbladder, set for surgery at 5 p.m. PHYSICAL EXAMINATION GENERAL: She is awake, alert, oriented, and communicative. VITAL SIGNS: She is afebrile, pulse 79, respirations 20, blood pressure 120/72. LUNGS: Bilateral fair airflow. No rhonchi or crackle. HEART: S1 and S2 audible. ABDOMEN: Soft with epigastric discomfort and rebound. Bowel sounds are positive. NEUROLOGIC: She is awake, alert, oriented and communicative. LABORATORY DATA: Chemistry; sodium 141, potassium 3.7, chloride 107, CO2 of 23, BUN 9, creatinine 0.5, blood sugar is 91. ASSESSMENT AND PLAN: 1. Acute cholecystitis. 2. Gallbladder diverticulum and cholelithiasis. 3. Gastritis. PLAN: Plan is for surgical intervention today. We will follow up her electrolytes in a.m. and we will see the patient in a.m. Georgi Kelley MD
[2016-12-13] MEDS ORDERED: Desflurane Inhalation Anesthetic Liq (240 ml) ONE (19:57)
[2016-12-13] MEDS: HYDROmorphone 0.5 mg/0.5 ml ISec IVP PRN ×2 (20:20→20:38)
--- NOTE | 2016-12-13 20:23 | PCM.SURG1 ---
Surgeon's Initial Post Op Note - Surgeon's Notes Surgeon: Dr. Cooley Government Affairs Manager: Eugenie PGY1 Type of Anesthesia: General Endo Anesthesia Administered By: Dr. Bond Pre-Operative Diagnosis: Cholelithiasis, Acute cholecystitis Operative Findings: see operative report Post-Operative Diagnosis: Cholelithiasis, Acute cholecystitis Operation Performed: Laparoscopic cholecystectomy with Intraoperative cholangiogram Specimen/Specimens Removed: Gallbladder, gallstone Estimated Blood Loss: EBL {In ML}: 15 Blood Products Given: N/A Drains Used: No Drains Post-Op Condition: Good Date of Surgery/Procedure: 12/13/16 Time of Surgery/Procedure: 06:15
[2016-12-13] MEDS ORDERED: Lactated Ringer's 1,000 ML IV SCH (20:30)
[2016-12-13] MEDS ORDERED: HYDROmorphone 0.5 mg/0.5 ml ISec ONE (20:39)
[2016-12-13] MEDS: Sodium Chloride 0.9% 1,000 ML IV SCH (22:47)
[2016-12-14] MEDS: HYDROmorphone 0.5 mg/0.5 ml ISec IVP PRN ×3 (00:49→10:52)
[2016-12-14 01:46] VITALS: RESP 20
[2016-12-14 08:37] VITALS: BP 103/52; PULSE 63; TEMP 98.4; O2SAT 97
--- NOTE | 2016-12-14 13:20 | RAD ---
PROCEDURE: Operative cholangiogram HISTORY: ? CBD OBST / LAP. KHUSHBOO. COMPARISON: TECHNIQUE: Fluoroscopy was provided in the operating room. 24.2 seconds of fluoro time. Three images were submitted FINDINGS: The common bile duct is normal in caliber. There are no filling defects. Contrast flows into the duodenum without obstruction IMPRESSION: As above
--- NOTE | 2016-12-14 14:02 | CP.PCM.PN ---
<Danita Reynaga - Last Filed: 12/14/16 14:02> Subjective - Date & Time of Evaluation Date of Evaluation: 12/14/16 Time of Evaluation: 11:10 - Subjective Subjective: Seen and examined at the bedside earlier today, the patient is postop day #1, height laparoscopic cholecystectomy with IOC. The patient does have some postop discomfort but no increase in intensity. Denies nausea, vomiting, fever , or chills. Tolerating oral intake. No acute overnight events reported. Objective - Vital Signs/Intake and Output Vital Signs (last 24 hours): Temp Pulse Resp BP Pulse Ox 98.4 F 63 20 103/52 L 97 12/14/16 08:36 12/14/16 08:36 12/14/16 08:36 12/14/16 08:36 12/14/16 08:36 Intake and Output: 12/14/16 12/14/16 06:59 18:59 Intake Total 1440 Balance 1440 - Medications Medications: Current Medications Al Hydrox/Mg Hydrox/Simethicone (Maalox Plus 30 Ml) 30 ml PO Q6H PRN PRN Reason: Indigestion / Heartburn Last Admin: 12/12/16 03:18 Dose: 30 ml Cephalexin Monohydrate (Keflex) 500 mg PO Q8H DUSTIN PRN Reason: Protocol Last Admin: 12/14/16 06:05 Dose: 500 mg Hydromorphone HCl (Dilaudid) 0.5 mg IVP Q3H PRN PRN Reason: Pain, moderate (4-7) Last Admin: 12/14/16 10:52 Dose: 0.5 mg Sodium Chloride (Sodium Chloride 0.9%) 1,000 mls @ 100 mls/hr IV .Q10H [facility] Last Admin: 12/13/16 22:47 Dose: 100 mls/hr Ondansetron HCl (Zofran Inj) 4 mg IVP Q4H PRN PRN Reason: Nausea/Vomiting Last Admin: 12/14/16 11:04 Dose: 4 mg Pantoprazole Sodium (Protonix Inj) 40 mg IVP DAILY [facility] Last Admin: 12/14/16 11:30 Dose: Not Given - Labs Labs: 12/13/16 06:30 PT 10.7 Seconds (9.9-11.8) 12/12/16 07:27 INR 0.99 (0.93-1.08) 12/12/16 07:27 APTT 29.1 Seconds (23.7-30.8) 12/12/16 07:27 - Constitutional Appears: No Acute Distress - Head Exam Head Exam: NORMOCEPHALIC - Eye Exam Eye Exam: Normal appearance. absent: Scleral icterus - ENT Exam ENT Exam: Mucous Membranes Moist - Respiratory Exam Respiratory Exam: Clear to Ausculation Bilateral, NORMAL BREATHING PATTERN. absent: Respiratory Distress - Cardiovascular Exam Cardiovascular Exam: +S1, +S2 - GI/Abdominal Exam GI & Abdominal Exam: Soft, Tenderness, Normal Bowel Sounds. absent: Guarding, Rebound - Extremities Exam Extremities Exam: Calf Tenderness. absent: Normal Capillary Refill, Pedal Edema - Neurological Exam Neurological Exam: Alert, Awake, Oriented x3 - Skin Skin Exam: Dry, Warm Assessment and Plan - Assessment and Plan (Free Text) Assessment: Assessment: S/P Laproscopic cholecystectomy POD #1 Abdominal pain, status post EGD/EUS found to have gastritis, calcified structure between the gallbladder and liver, status post MRCP with 2.6 cm void area and fundus and gallbladder possible gallbladder stone within Phrygian cap and or gallbladder diverticulum HTN HLD PLAN: diet as per surgery, rec low fat diet Continue PPI Pain mgt Follow-up endoscopy biopsy as per surgery Seen and discussed w/ Dr. Wild. <Amilcar Wild V - Last Filed: 12/14/16 21:06> Objective - Vital Signs/Intake and Output Vital Signs (last 24 hours): Temp Pulse Resp BP Pulse Ox 98.4 F 63 20 103/52 L 97 12/14/16 08:36 12/14/16 08:36 12/14/16 08:36 12/14/16 08:36 12/14/16 08:36 Intake and Output: 12/14/16 12/15/16 18:59 06:59 Intake Total 860 Balance 860 - Labs Labs: 12/13/16 06:30 PT 10.7 Seconds (9.9-11.8) 12/12/16 07:27 INR 0.99 (0.93-1.08) 12/12/16 07:27 APTT 29.1 Seconds (23.7-30.8) 12/12/16 07:27 Attending/Attestation - Attestation I have personally seen and examined this patient.: Yes I have fully participated in the care of the patient.: Yes I have reviewed all pertinent clinical information, including history, physical exam and plan: Yes Notes (Text): This is an addendum to GI progress report dictated by Danita Reynaga APN.The patient was seen and examined earlier. Medical records, lab studies, imagings were reviewed. Last 24 hours events reviewed. Agreed with the above treatment plan as outlined in Danita Reynaga APN's notes the with the addition of the following Status post cholecystectomy tolerating the diet Follow up on the path Postoperative surgery, planned to be discharged today 12/14/16 21:05
--- NOTE | 2016-12-14 16:38 | CP.PCM.PN ---
Subjective - Date & Time of Evaluation Date of Evaluation: 12/14/16 Time of Evaluation: 07:00 - Subjective Subjective: Patient seen and examined at bedside. Patient doing well with no new complaints at this time. Patient says she is having mild abdominal pain around her incision sites but is controlled with pain meds. Patient is having BMs and tolerating her diet. Patient denies fever, chills, nausea, vomiting, diarrhea, constipation, diarrhea, chest pain, shortness of breath. Objective - Vital Signs/Intake and Output Vital Signs (last 24 hours): Temp Pulse Resp BP Pulse Ox 98.4 F 63 20 103/52 L 97 12/14/16 08:36 12/14/16 08:36 12/14/16 08:36 12/14/16 08:36 12/14/16 08:36 Intake and Output: 12/14/16 12/14/16 06:59 18:59 Intake Total 1440 860 Balance 1440 860 - Labs Labs: 12/13/16 06:30 PT 10.7 Seconds (9.9-11.8) 12/12/16 07:27 INR 0.99 (0.93-1.08) 12/12/16 07:27 APTT 29.1 Seconds (23.7-30.8) 12/12/16 07:27 - Constitutional Appears: Non-toxic, No Acute Distress - Head Exam Head Exam: NORMAL INSPECTION - Eye Exam Eye Exam: EOMI - ENT Exam ENT Exam: Mucous Membranes Moist - Respiratory Exam Respiratory Exam: NORMAL BREATHING PATTERN. absent: Accessory Muscle Use, Wheezes, Respiratory Distress - Cardiovascular Exam Cardiovascular Exam: REGULAR RHYTHM. absent: Bradycardia, Tachycardia - GI/Abdominal Exam GI & Abdominal Exam: Soft. absent: Distended, Tenderness Additional comments: Incisions clean, dry, intact without erythema or swelling - Extremities Exam Extremities Exam: Normal Inspection. absent: Calf Tenderness - Neurological Exam Neurological Exam: Alert, Awake - Psychiatric Exam Psychiatric exam: Normal Affect, Normal Mood - Skin Skin Exam: Dry, Intact, Normal Color, Warm Assessment and Plan - Assessment and Plan (Free Text) Assessment: 46F s/p laparoscopic cholecystectomy POD#1 Plan: Patient clear for discharge from a surgical standpoint Keflex TID x 7 days at discharge F/U with Dr. Cooley in 1 week in office Lucy Chakraborty, PGY1
--- NOTE | 2016-12-15 02:33 | DS ---
BRIEF HISTORY: Patient is 46 years old, seen and examined. Doing well, has pain at the surgical site. No nausea or vomiting. PHYSICAL EXAMINATION: VITAL SIGNS: She is afebrile. Pulse 63, respirations 20, blood pressure 103/52. LUNGS: Bilateral fair air flow. No rhonchi or crackles. HEART: S1 and S2 audible. ABDOMEN: Soft, slight palpable discomfort. NEUROLOGIC: She is awake, alert, oriented, communicative. LABORATORY DATA: There is no new lab available today. ASSESSMENT: 1. Status post intractable abdominal pain, status post laparoscopic cholecystectomy. 2. Hypertension. PLAN: We will discharge patient home on Keflex, Protonix, and Ultracet, and she will follow up with me and Dr. Cooley as outpatient. Georgi Kelley MD
--- NOTE | 2016-12-15 14:39 | OP ---
PROCEDURE DATE: 12/13/2016 PREOPERATIVE DIAGNOSES: Acute cholecystitis and cholelithiasis. POSTOPERATIVE DIAGNOSES: Acute cholecystitis and cholelithiasis. PROCEDURE PERFORMED: Laparoscopic cholecystectomy with intraoperative cholangiogram. SURGEON: Javier Cooley MD SUBSTATION OPERATOR APPRENTICE: Dr. Traore. TYPE OF ANESTHESIA: General endotracheal anesthesia. ANESTHESIA ADMINISTERED BY: Dr. Bond. ESTIMATED BLOOD LOSS: Minimal. SPECIMEN: Gallbladder and gallstone. DESCRIPTION OF PROCEDURE: The patient is a 46-year-old female with history of recurrent right upper quadrant abdominal pain and at this time admitted with nausea and vomiting. The patient has an ultrasound showing presence of distended gallbladder with stone and was scheduled for laparoscopic cholecystectomy. The patient was brought to the operating room, placed on the operating table in supine position. The patient was connected to the EKG, blood pressure and pulse oximetry monitors. The patient then underwent general endotracheal anesthesia and was prepped and draped in the usual sterile fashion. First, a standard time-out procedure took place and everybody in the room agreed as to the patient's identity, diagnoses, and procedure to be performed. A surgical plan for the operation as well as postop plan was also presented. At this point, the procedure with grabbing the anterior abdominal wall towel clamps adjacent to the umbilicus and carefully proceeded with infiltrating the area and made a transverse incision in superior border of the umbilicus. Next, the Veress needle inserted through that incision and carefully pneumoperitoneum was obtained. Once pneumoperitoneum was adequate, I then proceeded placing a 12 mm trocar in that incision. The abdominal cavity was now carefully evaluated from the camera showing presence of distended and slightly thick wall gallbladder with the remaining portion of the bowel without any abnormalities. I then placed a second 5 mm trocar in the subxiphoid position and carefully proceeded with dissection of the infundibulum with the gallbladder. The adjacent thickened fat was carefully dissected out and cystic duct area was exposed. The cystic artery was also noted right behind cystic duct. Cystic duct was appeared to be fairly short and slightly thickened. At this point, after the entire dissection was done, I then proceeded placing clip proximally on the cystic duct. I made a small incision adjacent to it distally. A cholangiocatheter was now inserted through that incision into the cystic duct and the balloon was inflated and the cholangiogram was obtained that revealed prompt flow of dye into the entire biliary tree and prompt emptying into the duodenum. There was no evidence of obstruction. At this point, cystic duct catheter was removed. Cystic duct was clipped distally and transected and cystic artery was also clipped and transected. Now the gallbladder is carefully taken off the liver bed via electrocautery and once completely detached, it was placed in the EndoCatch bag and removed for the periumbilical incision. The right upper quadrant was copiously irrigated. All the bleeding points were cauterized and excess stool was suctioned out. The pneumoperitoneum was released and then allowed close fascia using 3-0 Vicryl, subcutaneous tissue using 3-0 Monocryl and 4-0 Monocryl for the skin. A sterile Dermabond dressing was applied to all the wounds. The patient tolerated the procedure well and there were no complications. The patient was awakened, extubated, and transferred to recovery room for further observation. Javier Cooley MD
== END 2016-12-14 14:57 | disposition home or self-care (01) | DRG 419 ==
LOC: ED 11:54 → ERH 13:19 → 5RNO 15:20 → 5RSO 20:35 → OBSVTOIN 12-12 19:29
PROVIDERS: ADMIT Internal Medicine; ATTEND Internal Medicine
PROC: 0DB68ZX Excision of Stomach, Via Natural or Artificial Opening Endoscopic, Diagnostic (ICD-10-PCS; 2016-12-12)
PROC: BF43ZZZ Ultrasonography of Gallbladder and Bile Ducts (ICD-10-PCS; 2016-12-12)
PROC: BF47ZZZ Ultrasonography of Pancreas (ICD-10-PCS; 2016-12-12)
PROC: BF131ZZ Fluoroscopy of Gallbladder and Bile Ducts using Low Osmolar Contrast (ICD-10-PCS; 2016-12-13)
PROC: 0FT44ZZ Resection of Gallbladder, Percutaneous Endoscopic Approach (ICD-10-PCS; principal; 2016-12-13 17:30)
DX: K80.12 Calculus of gallbladder with acute and chronic cholecystitis without obstruction (principal); I10 Essential (primary) hypertension; E78.00 Pure hypercholesterolemia, unspecified; K29.50 Unspecified chronic gastritis without bleeding; K44.9 Diaphragmatic hernia without obstruction or gangrene; Z79.899 Other long term (current) drug therapy; Z87.891 Personal history of nicotine dependence

== ENCOUNTER 2017-07-09 08:50 | Observation (INO) | payer OTHER ==
[2017-07-09] MEDS ORDERED: Sodium Chloride 0.9% 500 ML IV STA (09:31)
[2017-07-09 10:46] LABS: BASO # 0.04 K/mm3 (0.0-2.0); BASO % 0.6 % (0.0-3.0); EOS # 0.1 (0.0-0.7); EOS % 1.8 % (1.5-5.0); GRAN # 4.24 (1.4-6.5); GRAN % 60.3 % (50.0-68.0); LYMPH # 2.1 (1.2-3.4); LYMPH % 29.6 % (22.0-35.0); MEAN CORPUSCULAR HEMOGLOBIN 31.6 pg (25.0-35.0); MEAN CORPUSCULAR HGB CONC 34.7 g/dl (31.0-37.0); MEAN PLATELET VOLUME 8.6 fl (7.0-11.0); MONO # 0.5 (0.1-0.6); MONO % 7.7 % (1.0-6.0); RBC 4.12 10^6/uL (3.5-6.1); RED CELL DISTRIBUTION WIDTH 12.7 % (11.5-14.5)
[2017-07-09 10:54] LABS: ALB/GLOB RATIO 1.3 (1.1-1.8); ALBUMIN 4.3 g/dL (3.0-4.8); ALT/SGPT 66 U/L (7-56); AST/SGOT 45 U/L (14-36); BLOOD UREA NITROGEN 14 mg/dL (7-21); CALCIUM 9.6 mg/dL (8.4-10.5); GFR AFRICAN-AMERICAN > 60; GFR NON-AFRICAN AMERICAN > 60
[2017-07-09 11:06] LABS: TROPONIN I < 0.01 ng/mL
[2017-07-09 11:17] LABS: B-TYPE NATRIURETIC PEPTIDE 29.9 pg/mL (0-450)
--- NOTE | 2017-07-09 11:31 | ED PDOC ---
Arrival/HPI - General Chief Complaint: High Blood Pressure Time Seen by Provider: 07/09/17 09:17 Historian: Patient - History of Present Illness Narrative History of Present Illness (Text): 07/09/17 11:24 A 46 year old female, whose past medical history includes hypertension and hyperlipidemia, presents to the emergency department complaining of dizziness and near-syncope this morning which started at work. Patient notes associated nausea and a tingling sensation to left arm. She reports checking her blood pressure once at work, which showed a slightly elevated blood pressure. Patient went home to rest and re-echecked her blood pressure, which remained hypertensive. On present evaluation, patient reports the numbness has resolved but continues to complain of dizziness. Patient also reports frequent episodes of chest pain, which she relates to reflux. Patient denies any fever, chills, vomiting, abdominal pain, urinary symptoms, shortness of breath, or any other complaints. PMD: Dr. Kelley Time/Duration: Other (this morning) Symptom Course: Unchanged (dizziness), Resolved (numbness) Context: Home, Work Past Medical History - Provider Review Nursing Documentation Reviewed: Yes - Past History Past History: Non-Contributing - Infectious Disease Hx of Infectious Diseases: None - Tetanus Immunization Tetanus Immunization: Unknown - Cardiac Hx Cardiac Disorders: Yes Hx Hypertension: Yes - Pulmonary Hx Respiratory Disorders: No - Neurological Hx Headaches: Yes Other/Comment: pre-syncope - HEENT Hx HEENT Disorder: No - Renal Hx Renal Disorder: No - Endocrine/Metabolic Hx Endocrine Disorders: Yes Hx Hyperthyroidism: Yes - Hematological/Oncological Hx Blood Disorders: No - Integumentary Hx Dermatological Disorder: No - Musculoskeletal/Rheumatological Hx Musculoskeletal Disorders: No - Gastrointestinal Hx Gastrointestinal Disorders: Yes Hx Gall Bladder Disease: Yes Hx Gastritis: Yes (hiatal hernia) Hx Gastrointestinal Ulcer: No - Genitourinary/Gynecological Hx Genitourinary Disorders: No - Psychiatric Hx Psychophysiologic Disorder: No Hx Substance Use: No - Past Surgical History Past Surgical History: No Previous - Surgical History Hx Orthopedic Surgery: Yes (R deQuervain release) - Anesthesia Hx Anesthesia: Yes Hx Anesthesia Reactions: No Hx Malignant Hyperthermia: No - Suicidal Assessment Feels Threatened In Home Enviroment: No Family/Social History - Physician Review Nursing Documentation Reviewed: Yes Family/Social History: No Known Family HX Smoking Status: Unknown If Ever Smoked Hx Alcohol Use: No Hx Substance Use: No Hx Substance Use Treatment: No Allergies/Home Meds Allergies/Adverse Reactions: Allergies gtz Allergy (Verified 07/09/17 09:18) RASH Home Medications: Home Meds Medication Instructions Recorded Confirmed Simvastatin [Zocor] 20 mg PO DAILY 11/16/16 07/09/17 Simethicone [Gas-X] 125 mg PO DAILY 12/09/16 07/09/17 Ranitidine HCl [Zantac 75] 1 tab PO BID 07/09/17 07/09/17 Valsartan [Diovan] 20 mg PO DAILY 07/09/17 07/09/17 Review of Systems - Physician Review All systems were reviewed & negative as marked: Yes - Review of Systems Constitutional: absent: Fevers, Night Sweats Respiratory: absent: SOB Cardiovascular: Chest Pain, Other (near-syncope) Gastrointestinal: Nausea. absent: Abdominal Pain, Vomiting Genitourinary Female: absent: Dysuria, Frequency, Hematuria Neurological: Dizziness, Other (numbing sensation to left arm, which has resolved) Physical Exam Vital Signs Reviewed: Yes Vital Signs Temp Pulse Resp BP Pulse Ox 07/09/17 11:30 80 17 125/80 98 07/09/17 09:06 98.3 F 89 18 121/77 98 Temperature: Afebrile Blood Pressure: Normal Pulse: Regular Respiratory Rate: Normal Appearance: Positive for: Well-Appearing, Non-Toxic, Comfortable Pain Distress: None Mental Status: Positive for: Alert and Oriented X 3 Finger Stick Blood Glucose: 98 - Systems Exam Head: Present: Atraumatic, Normocephalic Pupils: Present: PERRL Extroacular Muscles: Present: EOMI Conjunctiva: Present: Normal Mouth: Present: Moist Mucous Membranes Neck: Present: Normal Range of Motion Respiratory/Chest: Present: Clear to Auscultation, Good Air Exchange. No: Respiratory Distress, Accessory Muscle Use Cardiovascular: Present: Regular Rate and Rhythm, Normal S1, S2. No: Murmurs Abdomen: Present: Normal Bowel Sounds. No: Tenderness, Distention, Peritoneal Signs Back: Present: Normal Inspection Upper Extremity: Present: Normal Inspection, NORMAL PULSES, Neurovascularly Intact. No: Cyanosis, Edema Lower Extremity: Present: Normal Inspection, NORMAL PULSES. No: Edema Neurological: Present: GCS=15, CN II-XII Intact, Speech Normal, Motor Func Grossly Intact, Normal Sensory Function Skin: Present: Warm, Dry, Normal Color. No: Rashes Psychiatric: Present: Alert, Oriented x 3, Normal Insight, Normal Concentration Medical Decision Making ED Course and Treatment: 07/09/17 11:24 Impression: A 46 year old female with dizziness and near syncope. Patient notes a numbing sensation to left arm, which has resolved. She reports chest pain, associated to reflux. Plan: -- Head CT -- Chest xray -- EKG -- Labs -- Urinalysis -- IV fluids -- Reassess and disposition Progress Notes: head CT: FINDINGS: HEMORRHAGE: No intracranial hemorrhage. BRAIN: No mass effect or edema. No atrophy or chronic microvascular ischemic changes. VENTRICLES: Unremarkable. No hydrocephalus. CALVARIUM: Unremarkable. PARANASAL SINUSES: Unremarkable as visualized. No significant inflammatory changes. MASTOID AIR CELLS: Unremarkable as visualized. No inflammatory changes. OTHER FINDINGS: None. IMPRESSION: No acute findings ekg; normal sinus rhythm with sinus arrhythmia at 78 bpm, normal axis, no st elevations. cxr; wnl cbc; wnl cmp; elevated ast/alt trop; wnl 07/09/17 12:[address] kelley; accepts observational status [facility] for near syncope; Asa given PO All results discussed in depth with the patient all aspects of this case were discussed the attending of record. impression: near syncope admit observational status to [facility]. - Lab Interpretations Lab Results: 07/09/17 10:39 07/09/17 10:39 Lab Results 07/09/17 12:30: Urine Color Yellow, Urine Appearance Clear, Urine pH 6.5, Ur Specific Dum[place] 1.010, Urine Protein Negative, Urine Glucose (UA) Negative, Urine Ketones Negative, Urine Blood Negative, Urine Nitrate Negative, Urine Bilirubin Negative, Urine Urobilinogen 0.2, Ur Leukocyte Esterase Trace H, Urine RBC Negative, Urine WBC 2 - 5, Ur Epithelial Cells 4 - 5, Urine Bacteria Few 07/09/17 10:39: Sodium 144, Potassium 3.7, Chloride 106, Carbon Dioxide 26, Anion Gap 16, BUN 14, Creatinine 0.4 L, Est GFR ( Amer) > 60, Est GFR ( Non-Af Amer) > 60, Random Glucose 114 H, Calcium 9.6, Magnesium 2.1, Total Bilirubin 0.5, AST 45 H, ALT 66 H, Alkaline Phosphatase 101, Lactate Dehydrogenase 369, Total Creatine Kinase 35, Troponin I < 0.01, NT-Pro-B Natriuret Pep 29.9, Total Protein 7.5, Albumin 4.3, Globulin 3.2, Albumin/ Globulin Ratio 1.3 07/09/17 10:39: WBC 7.0, RBC 4.12, Hgb 13.0, Hct 37.5, MCV 91.0, MCH 31.6, MCHC 34.7, RDW 12.7, Plt Count 343, MPV 8.6, Gran % 60.3, Lymph % (Auto) 29.6, [place] % (Auto) 7.7 H, Eos % (Auto) 1.8, Baso % (Auto) 0.6, Gran # 4.24, Lymph # (Auto ) 2.1, [place] # (Auto) 0.5, Eos # (Auto) 0.1, Baso # (Auto) 0.04 07/09/17 10:29: POC Glucose (mg/dL) 98 I have reviewed the lab results: Yes - RAD Interpretation Radiology Orders: 07/09/17 09:30 HEAD W/O CONTRAST [CT] Stat CHEST PORTABLE [RAD] Stat 07/09/17 11:47 CAROTID & VERTEBRAL DUPLEX [US] Urgent - Medication Orders Current Medication Orders: Atorvastatin Calcium (Lipitor) 10 mg PO DIN DUSTIN Meclizine HCl (Antivert) 12.5 mg PO TID DUSTIN Pantoprazole Sodium (Protonix Ec Tab) 40 mg PO 0630 DUSTIN Discontinued Medications Aspirin (Aspirin) 325 mg PO STAT STA Stop: 07/09/17 13:42 Sodium Chloride (Sodium Chloride 0.9%) 500 mls @ 999 mls/hr IV .Q31M STA Stop: 07/09/17 10:01 Last Admin: 07/09/17 10:21 Dose: 999 mls/hr eMAR Start Stop Document 07/09/17 10:21 SF (Rec: 07/09/17 10:21 SF [id number]) Intravenous Solution Start Date 07/09/17 Start Time 10:21 End Date 07/09/17 End time 10:51 Total Infusion Time 30 - Scribe Statement The provider has reviewed the documentation as recorded by the Jerrica Hyde Provider Scribe Attestation: All medical record entries made by the Scribe were at my direction and personally dictated by me. I have reviewed the chart and agree that the record accurately reflects my personal performance of the history, physical exam, medical decision making, and the department course for this patient. I have also personally directed, reviewed, and agree with the discharge instructions and disposition. Disposition/Present on Arrival - Present on Arrival Any Indicators Present on Arrival: No History of DVT/PE: No History of Uncontrolled Diabetes: No Urinary Catheter: No History of Decub. Ulcer: No History Surgical Site Infection Following: None - Disposition Have Diagnosis and Disposition been Completed?: Yes Diagnosis: Near syncope Disposition: HOSPITALIZED Disposition Time: 12:00 Patient Plan: Observation Patient Problems: Current Active Problems Problem Status Onset Near syncope Acute Condition: FAIR Referrals: Georgi Kelley MD [Primary Care Provider] - Follow up with primary Forms: Traka (Ghanaian)
[2017-07-09 12:39] LABS: PH,URINE 6.5 (4.7-8.0); URINE APPEARANCE CLEAR (CLEAR); URINE BILIRUBIN NEGATIVE (NEGATIVE); URINE BLOOD NEGATIVE (NEGATIVE); URINE COLOR YELLOW (YELLOW); URINE GLUCOSE (UA) NEGATIVE (NEGATIVE); URINE LEUKOCYTE ESTERASE TRACE Leu/uL (NEGATIVE); URINE PROTEIN NEGATIVE mg/dL (<30 mg/dL); URINE UROBILINOGEN 0.2 E.U./dL (<1 E.U./dL)
[2017-07-09 12:56] LABS: URINE BACTERIA FEW (NEG); URINE RBC NEGATIVE /hpf (0-2)
--- NOTE | 2017-07-09 13:09 | CT ---
PROCEDURE: CT HEAD WITHOUT CONTRAST. HISTORY: dizziness COMPARISON: None available. TECHNIQUE: Axial computed tomography images were obtained through the head/brain without intravenous contrast. Radiation dose: Total exam DLP = 885 mGy-cm. This CT exam was performed using one or more of the following dose reduction techniques: Automated exposure control, adjustment of the mA and/or kV according to patient size, and/or use of iterative reconstruction technique. FINDINGS: HEMORRHAGE: No intracranial hemorrhage. BRAIN: No mass effect or edema. No atrophy or chronic microvascular ischemic changes. VENTRICLES: Unremarkable. No hydrocephalus. CALVARIUM: Unremarkable. PARANASAL SINUSES: Unremarkable as visualized. No significant inflammatory changes. MASTOID AIR CELLS: Unremarkable as visualized. No inflammatory changes. OTHER FINDINGS: None. IMPRESSION: No acute findings
--- NOTE | 2017-07-09 13:47 | CON ---
DATE: 07/09/2017 NEUROLOGY CONSULT CHIEF COMPLAINT: Dizziness. HISTORY OF PRESENT ILLNESS: This is a 46-year-old woman with history of hypertension, hyperlipidemia, who presents to the ER with complaints of dizziness, near syncope, pneumonia, started at work. She states she got slightly nauseous and tingling sensation of the left arm and has some gastroesophageal reflux symptoms. Otherwise, the neuro exam is nonfocal. She is going for a CAT scan of the head and shoulders. Currently underwent an ultrasound of the carotids. No focal weakness of the extremities. No change in sense of vision, taste or smell. She distress, but no acute events overnight. PAST MEDICAL HISTORY: Hypertension, hyperlipidemia. REVIEW OF SYSTEMS: Fourteen-point review of systems is negative except as per the HPI. FAMILY HISTORY: Noncontributory. SOCIAL HISTORY: No illicit drug use, smoking or EtOH abuse. ALLERGIES: NO KNOWN DRUG ALLERGIES. PHYSICAL EXAMINATION: VITAL SIGNS: Temperature 98.3, pulse rate of 89, respiratory rate of 18, blood pressure 121/77, oxygen saturation 98% by room air. GENERAL: The patient is sitting up in bed, in no acute distress. HEENT: Atraumatic, normocephalic. PERRLA. Extraocular muscles intact. NECK: Supple. No JVD. No adenopathy noted. LUNGS: Clear to auscultation. No adventitious sounds. HEART: S1, S2. Normal rate and rhythm. No murmurs, rubs or gallops. ABDOMEN: Soft, nontender and nondistended. Bowel sounds are present. EXTREMITIES: No clubbing. No cyanosis. Peripheral pulses 2+ felt bilaterally. NEUROLOGIC: The patient is alert and oriented to person, place, month and year. Speech is fluent without any errors. Cranial nerves II through XII intact. Motor exam: Moves all extremities equally. Toes are downgoing bilaterally. Sensory exam: Light touch, pinprick, proprioception and vibration are intact. DTRs are 2+ throughout. Coordination: [id number] intact. Gait is deferred for now. LABORATORY DATA: Sodium is 144, potassium is 3.7, chloride of 106, carbon dioxide of 26, BUN of 14, creatinine 0.4, random glucose of 114. ASSESSMENT AND PLAN: This is a 46-year-old woman with history of hypertension, hyperlipidemia, near syncope/dizziness, which could be likely secondary to a transient hypertensive state. At this time, neurologic examination is nonfocal. She will go for a CAT scan of the head and carotid Doppler and if it is abnormal, then she will stay, otherwise she is clinically stable from my standpoint for discharge. Thank you for this consult. Ramiro Avila MD
--- NOTE | 2017-07-09 13:51 | RAD ---
HISTORY: cp/dizziness COMPARISON: 12/10/2016 FINDINGS: LUNGS: No active pulmonary disease. PLEURA: No significant pleural effusion identified, no pneumothorax apparent. CARDIOVASCULAR: Normal. OSSEOUS STRUCTURES: No significant abnormalities. VISUALIZED UPPER ABDOMEN: Normal. OTHER FINDINGS: None. IMPRESSION: No active disease.
--- NOTE | 2017-07-09 16:39 | CARD ---
APPROVED REPORT EKG Measurement Heart [id number] <Conclusion> Normal sinus rhythm with sinus arrhythmia Normal ECG
[2017-07-09] MEDS ORDERED: RANITIDINE HCL PO SCH (18:00)
--- NOTE | 2017-07-09 19:17 | US ---
PROCEDURE: Bilateral carotid artery duplex ultrasound HISTORY: Carotid stenosis PHYSICIAN(S): Tavo Harding MD. TECHNIQUE: Duplex sonography and color-flow Doppler were used to evaluate the carotid bifurcations and limited segments of the vertebral arteries bilaterally. The exam is somewhat limited by tortuous vessels. FINDINGS: There is mild smooth hypoechoic plaque noted at the carotid bifurcations bilaterally. The peak systolic velocity in the proximal right internal carotid artery is 93 cm/sec. This corresponds to a 20 to 39% proximal right ICA stenosis. Normal systolic velocities are noted in the proximal right external carotid artery. There is antegrade flow in the right vertebral artery. The peak systolic velocity in the proximal left internal carotid artery is 98 cm/sec. This corresponds to a 20 to 39% proximal left ICA stenosis. Normal systolic velocities are noted in the proximal left external carotid artery. There is antegrade flow in the left vertebral artery. IMPRESSION: 1. Bilateral 20-39% proximal ICA stenoses. 2. Antegrade flow in both vertebral arteries.
[2017-07-10 00:45] VITALS: BMI 25.4
[2017-07-10] MEDS ORDERED: Pneumococcal 23-Valent Vaccine IM ONE (00:45)
--- NOTE | 2017-07-10 03:23 | HP ---
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 Patient states she was having some chest discomfort and felt as if she is going to pass out. She also has left arm numbness with some chest discomfort, started last night, got better. When she went home, she had similar symptoms. She also felt nauseous during this time and tingling in her left arm. PAST MEDICAL HISTORY: Significant for, 1. Hypertension. 2. Hyperlipidemia. 3. Recent cholecystectomy. ALLERGIES: SHE IS NOT ALLERGIC TO ANY MEDICATIONS. MEDICATION AT HOME: She is on Ambien 10 mg at bedtime, losartan 12.5 daily, atorvastatin 10 mg daily, famotidine 20 mg twice a day and Protonix 40 mg daily. SOCIAL HISTORY: She is . Denies smoking, drinking or alcohol use. PHYSICAL EXAMINATION: GENERAL: She is comfortable. Awake, alert and oriented. VITAL SIGNS: She is afebrile, pulse 72, respirations 17, blood pressure . LUNGS: Bilateral fair airflow. No rhonchi or crackle. HEART: S1, S2 audible. ABDOMEN: Soft, nontender. No rebound. No guarding. NEUROLOGIC: She is awake, alert, oriented and communicative. No focal deficit. EXTREMITIES: Bilateral legs, no edema. LABORATORY EXAMINATION: WBC is 7, hemoglobin 13, hematocrit 37, platelet of 343. Chemistry; sodium 144, potassium 3.7, chloride 106, CO2 of 26, BUN 14, creatinine 0.4, blood sugar of 114. AST 45, ALT 66. Troponin 0.01. Urine shows trace leukocytes. She had carotid Doppler done, pending. CT scan of the head and brain is unremarkable. EKG shows normal sinus rhythm. X-ray chest is unremarkable. ASSESSMENT AND PLAN: 1. Near syncope and dizziness. 2. Left arm tingling and numbness. 3. History of hypertension. 4. Peptic ulcer disease. PLAN: So plan is, awaiting carotid Doppler, if it is negative, patient can be discharged. So, it could be positional vertigo. I will discuss with the neurologist. Georgi Kelley MD [facility] # [id number]
[2017-07-10] MEDS ORDERED: Pantoprazole 40 mg EC Tab PO SCH (06:30)
[2017-07-10 08:24] VITALS: BP 114/57; PULSE 71; RESP 20; TEMP 97.9; O2SAT 99
--- NOTE | 2017-07-10 10:24 | CP.PCM.PCO ---
Physician Communication Note - Physician Communication Note Physician Communication Note: dizzines sec mild transien HTN /mild positnal vertigo.
--- NOTE | 2017-07-10 21:05 | DS ---
HISTORY OF PRESENT ILLNESS: The patient is 46 years old, seen and examined, lying in bed, seems to be comfortable. No nausea or vomiting. No diarrhea. Eating and tolerating. PHYSICAL EXAMINATION: VITAL SIGNS: The patient is afebrile, pulse 71, respirations 20, blood pressure 114/57. LUNGS: Bilateral fair airflow. No rhonchi or crackle. HEART: S1 and S2 audible. ABDOMEN: Soft. Nontender. No rebound. No guarding. NEUROLOGIC: She is awake, alert, oriented, communicative, ambulatory. EXTREMITIES: No leg edema. LABORATORY EXAM: She had CT scan of the head and brain done that is unremarkable. Carotid Doppler is unremarkable. ASSESSMENT: 1. Dizziness, probably secondary to transient hypertension along with positional vertigo. 2. Status post cholecystectomy. 3. Peptic ulcer disease. 4. Hyperlipidemia. 5. Hypertension. PLAN: The patient is being discharged home. She will resume her medications including Zocor 20 mg daily, valsartan 40 mg daily and Zolpidem as needed. Georgi Kelley MD
== END 2017-07-10 13:53 | disposition home or self-care (01) ==
LOC: ED 08:50 → ERH 13:41 → 3RSO 15:08
PROVIDERS: ADMIT Internal Medicine; ATTEND Internal Medicine
DX: I10 Essential (primary) hypertension (principal); R55 Syncope and collapse; R42 Dizziness and giddiness; K27.9 Peptic ulcer, site unspecified, unspecified as acute or chronic, without hemorrhage or perforation; E78.5 Hyperlipidemia, unspecified; R20.2 Paresthesia of skin; R20.0 Anesthesia of skin
CPT/HCPCS: 70450; 71045; 80053; 81001; 82550; 82948; 83615; 83735; 83880; 84484; 85025; 87086; 93005; 93880; 99285; G0378; J7040

== ENCOUNTER 2017-07-27 10:43 | Day surgery (SDC) | payer OTHER ==
[2017-07-18 06:37] VITALS: BMI 26.2
[2017-07-27] MEDS ORDERED: Propofol 10 mg/ml Inj (20 ML) ONE (16:08)
[2017-07-27] MEDS ORDERED: Sodium Chloride 0.9% 1,000 ML IV SCH (16:45)
[2017-07-27 17:34] VITALS: RESP 18; TEMP 97.7
[2017-07-27 17:46] VITALS: O2SAT 99
[2017-07-27 18:11] VITALS: BP 97/62; PULSE 84
== END 2017-07-27 18:15 | disposition home or self-care (01) ==
LOC: ENDO 10:43
PROVIDERS: ATTEND Internal Medicine Gastroenterology
DX: K59.00 Constipation, unspecified (principal); K64.4 Residual hemorrhoidal skin tags; K64.8 Other hemorrhoids; R19.4 Change in bowel habit; R10.9 Unspecified abdominal pain
CPT/HCPCS: 45380; 84703; 88305; J2704; J7030; J7040

== ENCOUNTER 2018-03-03 05:54 | Emergency (ER) | payer OTHER ==
[2018-03-03 06:02] VITALS: BMI 24.5
[2018-03-03 06:16] VITALS: RESP 16; O2SAT 97
[2018-03-03] MEDS ORDERED: TDAP Vaccine 0.5 mL Syr IM ONE (07:09)
--- NOTE | 2018-03-03 07:14 | ED PDOC ---
Arrival/HPI - General Chief Complaint: Needle Stick Time Seen by Provider: 03/03/18 07:07 Historian: Patient - History of Present Illness Time/Duration: Prior to Arrival Symptom Onset: Sudden Symptom Course: Improving Severity Level: Mild Associated Symptoms (Text): 03/03/18 07:11 patient was at work just prior to arrival when she suffered a puncture wound to her dominant right distal thumb with a sterile urine needle,. She initially had pain, but the pain has resolved. She needs tetanus immunization. Past Medical History - Past History Past History: Non-Contributing - Infectious Disease Hx of Infectious Diseases: None - Tetanus Immunization Tetanus Immunization: Unknown - Cardiac Hx Hypertension: Yes - Pulmonary Hx Respiratory Disorders: Yes (SMOKED CIGARETTES/EVAPES USED NOW) Hx Pneumonia: Yes - Neurological Hx Paralysis: No - HEENT Hx HEENT Disorder: Yes (WEARS RX GLASSES) - Renal Hx Renal Disorder: No - Endocrine/Metabolic Hx Endocrine Disorders: Yes - Hematological/Oncological Hx Blood Transfusions: No Hx Blood Transfusion Reaction: No - Integumentary Hx Dermatological Disorder: No - Musculoskeletal/Rheumatological Hx Musculoskeletal Disorders: No - Gastrointestinal Hx Gastrointestinal Disorders: Yes (GASTRITIS,HIATAL HERNIA) Hx Gall Bladder Disease: Yes (CHOLEYCYSTECTOMY) - Genitourinary/Gynecological Hx Urinary Tract Infection: Yes - Psychiatric Hx Emotional Abuse: No Hx Physical Abuse: No Hx Substance Use: No - Past Surgical History Past Surgical History: No Previous - Surgical History Hx Orthopedic Surgery: Yes (R deQuervain release) - Anesthesia Hx Anesthesia Reactions: No Hx Malignant Hyperthermia: No - Suicidal Assessment Feels Threatened In Home Enviroment: No Family/Social History - Physician Review Nursing Documentation Reviewed: Yes Family/Social History: Unknown Family HX Smoking Status: Former Smoker Hx Alcohol Use: Yes (OCCASIONALLY,RARELY) Hx Substance Use: No Hx Substance Use Treatment: No Allergies/Home Meds Allergies/Adverse Reactions: Allergies gtz Allergy (Severe, Verified 03/03/18 06:02) TONGUE SWELLING Home Medications: Home Meds Medication Instructions Recorded Confirmed Simethicone [Gas-X] 125 mg PO DAILY 12/09/16 03/03/18 Ranitidine HCl [Zantac 75] 1 tab PO BID 07/09/17 03/03/18 Ascorbic Acid [Vitamin C] 500 mg PO DAILY 07/18/17 03/03/18 Calcium Carbonate [Tums] 500 mg PO PRN PRN 07/18/17 03/03/18 [place]-3 Fatty Acids/Fish Oil [Fish 1,000 mg PO DAILY 07/18/17 03/03/18 Oil 1,000 mg Capsule] Vitamin E [Vitamin E 400 Units Cap] 400 iu PO DAILY 07/18/17 03/03/18 Review of Systems - Physician Review All systems were reviewed & negative as marked: Yes Physical Exam Vital Signs Temp Pulse Resp BP Pulse Ox 03/03/18 06:15 98.0 F 98 H 16 137/81 97 Temperature: Afebrile Blood Pressure: Normal Pulse: Regular Respiratory Rate: Normal Appearance: Positive for: Well-Appearing, Non-Toxic, Comfortable Pain Distress: None Mental Status: Positive for: Alert and Oriented X 3 - Systems Exam Upper Extremity: Present: Normal Inspection, Normal ROM, NORMAL PULSES, Neurovascularly Intact, Other (no skin changes are appreciated.). No: Tenderness, Swelling, Erythema, Deformity Medical Decision Making ED Course and Treatment: 03/03/18 07:12 follow-up with employee health. Tetanus immunization given. - Medication Orders Current Medication Orders: Discontinued Medications Tetanus/Reduced Diphtheria/Acell Pertussis (Boostrix Vaccine Inj) 0.5 ml IM .ONCE ONE Stop: 03/03/18 07:10 Disposition/Present on Arrival - Present on Arrival Any Indicators Present on Arrival: No History of DVT/PE: No History of Uncontrolled Diabetes: No Urinary Catheter: No History of Decub. Ulcer: No History Surgical Site Infection Following: None - Disposition Have Diagnosis and Disposition been Completed?: Yes Diagnosis: Puncture wound Disposition: HOME/ ROUTINE Disposition Time: 07:13 Patient Plan: Discharge Condition: GOOD Discharge Instructions (ExitCare): Wound Care (DC) Additional Instructions: Follow-up with employee health.
[2018-03-03 07:27] VITALS: BP 132/78; PULSE 92; TEMP 98.6
[2018-03-03 08:40] LABS: BASO # 0.04 K/mm3 (0.0-2.0); BASO % 0.4 % (0.0-3.0); EOS # 0.2 (0.0-0.7); EOS % 1.6 % (1.5-5.0); GRAN # 4.68 (1.4-6.5); GRAN % 49.4 % (50.0-68.0); HEMOGLOBIN 13.1 g/dL (12.0-16.0); LYMPH % 42.6 % (22.0-35.0); MEAN CELL VOLUME 92.5 fl (80.0-105.0); MEAN CORPUSCULAR HEMOGLOBIN 31.8 pg (25.0-35.0); MEAN CORPUSCULAR HGB CONC 34.4 g/dl (31.0-37.0); MEAN PLATELET VOLUME 8.4 fl (7.0-11.0); MONO # 0.6 (0.1-0.6); RBC 4.12 10^6/uL (3.5-6.1); RED CELL DISTRIBUTION WIDTH 12.5 % (11.5-14.5); WHITE BLOOD COUNT 9.5 10^3/uL (4.5-11.0)
[2018-03-03 09:15] LABS: ALB/GLOB RATIO 1.3 (1.1-1.8); ALBUMIN 4.4 g/dL (3.0-4.8); ALT/SGPT 43 U/L (7-56); AST/SGOT 32 U/L (14-36); BLOOD UREA NITROGEN 19 mg/dL (7-21); CALCIUM 9.2 mg/dL (8.4-10.5); GFR NON-AFRICAN AMERICAN > 60
[2018-03-04 07:51] LABS: HEPATITIS B SURFACE AG Negative (NEGATIVE)
[2018-03-04 07:56] LABS: HEPATITIS A IGM NEGATIVE (NEGATIVE); HEPATITIS B CORE AB NEGATIVE (NEGATIVE)
[2018-03-04 08:08] LABS: HEPATITIS C ANTIBODY NEGATIVE (NEGATIVE)
== END 2018-03-03 07:25 | disposition home or self-care (01) ==
LOC: ED 05:54
DX: S61.031A Puncture wound without foreign body of right thumb without damage to nail, initial encounter (principal); W46.0XXA Contact with hypodermic needle, initial encounter; Y92.89 Other specified places as the place of occurrence of the external cause; Y99.0 Civilian activity done for income or pay; Z23 Encounter for immunization

== ENCOUNTER 2018-03-15 07:34 | Outpatient (CLI) | payer OTHER | END 2018-03-15 07:35 | disposition home or self-care (01) | LOC: LAB 07:34 ==

== ENCOUNTER 2018-04-26 07:27 | Outpatient (CLI) | payer OTHER | END 2018-04-26 07:28 | disposition home or self-care (01) | LOC: LAB 07:27 ==